=== PATIENT | female | born 1955 | race Caucasian/White ===

== ENCOUNTER → 2024-03-16 09:55 | Outpatient (REF) | payer MEDICARE, BC, SELFPAY | LOC: HWRAD 09:55 | PROVIDERS: ATTENDING PHYSICIAN Nurse Practitioner Family | DX: Z12.31 Encounter for screening mammogram for malignant neoplasm of breast (principal); M81.0 Age-related osteoporosis without current pathological fracture | CPT/HCPCS: 77063; 77067; 77080 ==

== ENCOUNTER → 2024-03-21 08:41 | Outpatient (REF) | payer MEDICARE, BC, SELFPAY | LOC: RAD 08:41 | PROVIDERS: ATTENDING PHYSICIAN Surgery Vascular Surgery | DX: I72.3 Aneurysm of iliac artery (principal) | CPT/HCPCS: 76770 ==

== ENCOUNTER → 2024-05-16 06:27 | Day surgery (SDC) | payer MEDICARE, BC, SELFPAY | LOC: GI 06:27 | PROVIDERS: ATTENDING PHYSICIAN Surgery | DX: Z12.11 Encounter for screening for malignant neoplasm of colon (principal); Z86.0100 Personal history of colon polyps, unspecified; K57.30 Diverticulosis of large intestine without perforation or abscess without bleeding; D12.5 Benign neoplasm of sigmoid colon | CPT/HCPCS: 45385; 88305 ==

== ENCOUNTER 2024-09-17 16:49 | Emergency (ER) | payer MEDICARE, BC, SELFPAY ==
[2024-09-17 17:12] VITALS: BMI 32.0
--- NOTE | 2024-09-17 17:33 | ED.GENMED ---
History of Present Illness
General
Chief Complaint: Fall
Source: patient
Exam Limitations: none
Time Seen by Provider: 09/17/24 17:16
Nursing documentation reviewed up to this point in time: agreed with
History of Present Illness
History of Present Illness:
69-year-old female presents with pain and swelling of her left calf, slip and fall down ice on a stair deck around 12 noon apparently was on the ground for 5 minutes though she got up took some Tylenol pain is increased through the day, EMS was
called received fentanyl notes feeling better she can ambulate, no head strike no hip pain, she has had bilateral knee replacements from Dr. Mejia she has had bilateral shoulder surgery Dr. Mi on aspirin no other blood thinners
Past History
Past History
ED Past Medical History: Hypothyroidism and Psychiatric (Anxiety, depression)
ED Past Surgical History: Orthopedic
Social History
Tobacco: Non-smoker
Alcohol: Daily
Drug: None
Personal:
Living: with family
Employment: Not employed
Phy Exam
Physical Exam
Physical Exam:
Physical Exam
General: 69-year-old female with no apparent head or neck trauma
Neck: No tongue bite no posterior neck pain
Heart: Regular
Lungs: no acute respiratory distress. clear bilaterally
Abdomen: Nontender
Neuro: alert and oriented. no focal neurological deficits
Skin: no rash
Psychiatric: well kept. interactive and cooperative
Extremities: Left lower extremity large hematoma anterior lateral to the tibia swelling the posterior calf
Course
Orders/Labs/Results
Orders:
Orders
09/17/24 17:15
CR Leg Tibia/fibula Left 2 Vw Urgent
Comment:
Reason For Exam: pain, swelling, bruising after fall
09/17/24 17:27
Complete Blood Count/With Diff Urgent
Comprehensive Metabolic Panel Urgent
Creatine Phosphokinase Urgent
Comment: ADD ON
Prothrombin Time Urgent
09/17/24 17:28
Add On- LAB Urgent
Tests Added?: cpk
09/17/24 17:34
Electrocardiogram (*1) Urgent
Reason for Study: QTc Monitoring
EKG- Treatment ONCE
09/17/24 19:06
Crutches-Treatment ONCE
09/17/24 19:16
0.9% Sodium Chloride 500 ml [Nss] 500 ml IV BOLUS
09/17/24 20:52
Oxycodone/Acetaminophen [Percocet 5/325] 1 tablet PO NOW STA
Abnormal Lab Results
09/17/24
17:27
RBC 3.42 L 10^6/uL
(4.20-5.40)
Hct 35.2 L %
(37.0-47.0)
MCV 102.9 H fL
(81.0-99.0)
MCH 35.4 H pg
(27.0-31.0)
Carbon Dioxide 20 L mmol/L
(22-30)
Glucose 151 H mg/dl
(70-99)
AST 40 H U/L
(14-36)
ALT 45 H U/L
(0-35)
Total Protein 6.0 L g/dl
(6.3-8.2)
09/17/24 17:27
09/17/24 17:27
Vital Signs
Initial and Last Documented VS:
Initial Vital Signs
Temp Pulse Resp BP Pulse Ox
98.2 F 50 18 90/69 98
09/17/24 17:38 09/17/24 17:38 09/17/24 17:38 09/17/24 17:38 09/17/24 17:38
Last Documented Vital Signs
Temp Pulse Resp BP Pulse Ox
98.2 F 72 20 91/71 95
09/17/24 17:38 09/17/24 19:48 09/17/24 19:48 09/17/24 19:48 09/17/24 19:23
*Radiology
Radiology exam reviewed: preliminary read by ED provider
*Pulse Oximetry
Patient hypoxic: no
*Critical Care Note
Total Time (30-74mins, 75-104mins- exclusive of procedures): Not Applicable
Update Note
Update Note:
Update x-ray noted patient feeling better labs are noted she has palpable pulses, minimal calf pain does have some swelling on the anterior of her de jesus with that hematoma
I do not see signs of compartment syndrome at this time--likewise there is no fracture she is on aspirin but no other blood thinners
Will see how she does with crutches
Update blood pressure is low bit low will give 500 saline, check an EKG labs are noted she looks well normal mental status, is not appear to be intoxicated, she did receive fentanyl from EMS we will hold on pushing her discharge obviously so she
responds
EKG noted blood pressure improved without any fluids, ambulating okay with crutches
ED Attending Note
-
Portions of this chart may have been created with voice recognition software.� Occasional wrong word or��sound alike� substitutions may have occurred due to the inherent limitations of voice recognition software.
Discharge Plan
Departure
Patient Disposition: Home (Routine Discharge)
Date of Disposition: 09/17/24
Time of Disposition: 19:12
Patient with high blood pressure during this ER visit?: No
Condition: Good
Discharge Problem:
Contusion of calf
Instructions: Preventing falls in adults, How to use crutches, Hematoma
Prescriptions:
New
oxycodone 5 mg tablet
5 mg PO Q8H PRN (Reason: Pain) Qty: 14 0RF
No Action
levothyroxine 50 MCG tablet
50 mcg PO DAILY@0700 Qty: 0 0RF
duloxetine 60 MG capsule,delayed release(DR/EC)
60 mg PO DAILY
multivitamin with folic acid [Tab-A-Kev] 1 TABLET tablet
1 tab PO DAILY
acetaminophen [Acetaminophen Extra Strength] 500 mg tablet
1,000 mg PO Q6H PRN (Reason: PAIN)
Rx Instructions:
DO NOT exceed >4000 mg daily.
docusate sodium 100 mg capsule
200 mg PO DAILY
gabapentin 300 mg capsule
300 mg PO TID
Eliquis 5 mg Tablet
10 mg PO BID Qty: 74 0RF
Rx Instructions:
take 10mg BID x 1 week, then 5mg BID thereafter (Starter delonte dosing)
Referrals:
Ehsan Mejia MD [Active] - Next open appointment
Joan Flores PA-C [Family Provider] -
Activity Restrictions/Additional Instructions:
Keep your leg elevated, walk frequently with crutches,
Follow-up with your orthopedist return to the ER if worsening pain or numbness
Interventions
Interventions:
*Risk Screen - Suicide Last Done: 09/17/24 17:12
*General Assessment Last Done: 09/17/24 17:12
*Neglect/Abuse Screening Last Done: 09/17/24 17:12
ED- Fall Risk Assessment Last Done: 09/17/24 17:12
*ED COVID-19 Vaccine History Last Done: 09/17/24 17:12
ED-Musculoskeletal Assessment Last Done: 09/17/24 17:12
ED- Neurological Assessment Last Done: 09/17/24 17:12
ED-Skin Assessment Last Done: 09/17/24 17:12
Discharge Date and Time
Print Language: BAHRAINI
[2024-09-17 17:36] LABS: % Basophils 0.8 % (0-2); % Eosinophils 1.4 % (0-6); % Immature Granulocytes 0.2 % (0-0.5); % Lymphocytes 29.3 % (20.5-51.1); % Monocytes 7.4 % (1.7-9.3); % Neutrophils 60.9 % (42.2-75.2); Absolute Eosinophils 0.1 10^3/uL (0-0.7); Absolute Lymphocytes 1.4 10^3/uL (1.2-3.4); Absolute Monocytes 0.4 10^3/uL (0.1-0.6); Hematocrit 35.2 % (37.0-47.0); Hemoglobin 12.1 g/dL (12.0-16.0); Mean Corp Hgb Conc. 34.4 g/dL (33.0-37.0); Mean Corpuscular Hgb 35.4 pg (27.0-31.0); Mean Corpuscular Volume 102.9 fL (81.0-99.0); Mean Platelet Volume 9.5 fL (7.4-10.4); Nucleated Red Blood Cells % 0 %; Platelet Count 198 10^3/uL (130-400); Red Blood Cell Count 3.42 10^6/uL (4.20-5.40); Red Cell Dist. Width 12.8 % (11.5-14.5); White Blood Cell Count 4.9 10^3/uL (4.8-10.8)
[2024-09-17 17:38] VITALS: BP 90/69
[2024-09-17 17:47] LABS: INR 1.04; PT 13.9 Sec (11.4-14.6)
[2024-09-17 17:49] LABS: ALT (SGPT) 45 U/L (0-35); AST (SGOT) 40 U/L (14-36); Albumin 3.6 g/dl (3.5-5.0); Alkaline Phosphatase 64 U/L (38-126); Blood Urea Nitrogen 9 mg/dl (7-17); Calcium 8.6 mg/dl (8.4-10.2); Carbon Dioxide 20 mmol/L (22-30); Chloride 106 mmol/L (98-107); Creatine Phosphokinase 114 U/L (30-135); Estimated Creatinine Clearance 91 ml/min; Glucose 151 mg/dl (70-99); Potassium 4.1 mmol/L (3.5-5.1); Sodium 135 mmol/L (135-145); Total Bilirubin 0.4 mg/dl (0.2-1.3); eGFR > 60.00
[2024-09-17 19:23] VITALS: BP 85/56
[2024-09-17 19:48] VITALS: BP 91/71
--- NOTE | 2024-09-17 19:48 | EDRN ---
This RN went in to assess pt and start IVF. Pt answered a call on [employer], asked pt if she would like this RN to return later. Pt ended call. Pt says she has some throbbing in her LLE. This RN switched BP cuff to R arm. Pt then answered
another call and was talking on FaceTime. This RN told pt will return later to speak with her.
[2024-09-17] MEDS: NSS 500 IV (20:48)
[2024-09-17] MEDS: PERCOCET 5/325 1 TABLET PO (20:55)
[2024-09-17 21:48] VITALS: BP 129/88
== END 2024-09-17 22:00 | disposition home or self-care (01) ==
LOC: EMR 16:49
PROVIDERS: EMERGENCY PHYSICIAN Emergency Medicine; FAMILY PHYSICIAN Physician Assistant
DX: S80.12XA Contusion of left lower leg, initial encounter (principal); W19.XXXA Unspecified fall, initial encounter; R22.42 Localized swelling, mass and lump, left lower limb; E03.9 Hypothyroidism, unspecified; F41.8 Other specified anxiety disorders
CPT/HCPCS: 99283; 96360; 73590; 80053; 82550; 85025; 85610; 93005

== ENCOUNTER → 2024-09-21 12:22 | Outpatient (REF) | payer MEDICARE, BC, SELFPAY | LOC: WOUND 12:22 | PROVIDERS: ATTENDING PHYSICIAN Surgery; FAMILY PHYSICIAN Nurse Practitioner Adult Health | DX: L97.229 Non-pressure chronic ulcer of left calf with unspecified severity (principal); S80.12XA Contusion of left lower leg, initial encounter; Z96.651 Presence of right artificial knee joint; Z91.81 History of falling; Z96.652 Presence of left artificial knee joint; Z86.718 Personal history of other venous thrombosis and embolism; W10.9XXA Fall (on) (from) unspecified stairs and steps, initial encounter | CPT/HCPCS: 99203 ==

== ENCOUNTER → 2024-09-28 10:12 | Outpatient (REF) | payer MEDICARE, BC, SELFPAY | LOC: WOUND 10:12 | PROVIDERS: ATTENDING PHYSICIAN Surgery; FAMILY PHYSICIAN Nurse Practitioner Adult Health | DX: L97.229 Non-pressure chronic ulcer of left calf with unspecified severity (principal); S80.12XA Contusion of left lower leg, initial encounter; Z96.651 Presence of right artificial knee joint; Z91.81 History of falling; Z96.652 Presence of left artificial knee joint; Z86.718 Personal history of other venous thrombosis and embolism; W10.9XXA Fall (on) (from) unspecified stairs and steps, initial encounter | CPT/HCPCS: 99213 ==

== ENCOUNTER → 2024-10-04 09:15 | Outpatient (REF) | payer MEDICARE, BC, SELFPAY | LOC: RAD 09:15 | PROVIDERS: ATTENDING PHYSICIAN Surgery Vascular Surgery | DX: I72.3 Aneurysm of iliac artery (principal) | CPT/HCPCS: 93978 ==

== ENCOUNTER → 2024-10-05 10:08 | Outpatient (REF) | payer MEDICARE, BC, SELFPAY | LOC: WOUND 10:08 | PROVIDERS: ATTENDING PHYSICIAN Surgery; FAMILY PHYSICIAN Nurse Practitioner Adult Health | DX: L97.229 Non-pressure chronic ulcer of left calf with unspecified severity (principal); S80.12XA Contusion of left lower leg, initial encounter; Z96.651 Presence of right artificial knee joint; Z91.81 History of falling; Z96.652 Presence of left artificial knee joint; Z86.718 Personal history of other venous thrombosis and embolism; W19.XXXA Unspecified fall, initial encounter | CPT/HCPCS: 99212 ==

== ENCOUNTER 2024-10-09 16:31 | Inpatient (IN) | payer MEDICARE, BC, SELFPAY ==
[2024-10-09] VITALS (7 sets, daily range): BP systolic 99–146; BP diastolic 64–84; BMI 28.9
--- NOTE | 2024-10-09 11:06 | ED.SKININJ ---
HPI-Injury
General
Chief Complaint: Skin Problem
Source: patient
Exam Limitations: none
Time Seen by Provider: 10/09/24 10:54
History of Present Illness-Injury
Initial Injury comments:
69-year-old female presents in referral from vascular surgery office for evaluation of worsening wound to the left leg. She was here several weeks ago after a fall and sustained a contusion to the left leg. She was then referred to wound care.
She has been following with wound care getting dressing changes and has been on Keflex for 2 weeks. 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
Past History
Past History
ED Past Medical History: Hypothyroidism and Psychiatric (Anxiety, depression)
ED Past Surgical History: Orthopedic
Social History
Tobacco: Non-smoker
Alcohol: Daily
Drug: None
Personal:
Living: with family
Employment: Not employed
Phy Exam
Physical Exam
Physical Exam:
General: Well-appearing female no acute respiratory distress
HEENT: Normocephalic atraumatic
Heart: Regular rate and rhythm lungs: Clear no wheeze
Lungs: Clear no wheeze skin: Large wound left lateral de jesus that is foul in odor with devitalized necrotic tissue at the base of the wound.
Vascular: Palpable pulse to the dorsal aspect of the left foot
Course
Orders/Labs/Results
Orders:
Orders
10/09/24 11:05
CR Leg Tibia/fibula Left 2 Vw Urgent
Comment:
Reason For Exam: infection
10/09/24 11:22
Complete Blood Count/With Diff Urgent
10/09/24 12:00
Basic Metabolic Panel Urgent
10/09/24 12:37
Ketorolac [Toradol] 15 mg IV NOW STA
Ondansetron Injectable [Zofran] 4 mg IV NOW STA
10/09/24 13:24
Vancomycin [Vancocin] 2,000 mg 0.9% Sodium Chloride 500 ml [Nss] 500 ml IV NOW
Abnormal Lab Results
10/09/24 10/09/24
11:22 12:00
RBC 3.75 L 10^6/uL
(4.20-5.40)
MCV 102.9 H fL
(81.0-99.0)
MCH 35.5 H pg
(27.0-31.0)
Absolute Lymphs (auto) 0.8 L 10^3/uL
(1.2-3.4)
Lymphocytes % 17.1 L %
(20.5-51.1)
Creatinine 0.5 L mg/dL
(0.6-1.0)
10/09/24 11:22
10/09/24 12:00
Vital Signs
Initial and Last Documented VS:
Initial Vital Signs
Temp Pulse Resp BP Pulse Ox
98.4 F 75 16 140/84 98
10/09/24 10:37 10/09/24 10:37 10/09/24 10:37 10/09/24 10:37 10/09/24 10:37
Last Documented Vital Signs
Temp Pulse Resp BP Pulse Ox
98.4 F 75 16 140/84 98
10/09/24 10:37 10/09/24 10:37 10/09/24 10:37 10/09/24 10:37 10/09/24 10:37
MDM/Problems Addressed
Differential Diagnosis Includes:
Worsening wound left lateral de jesus. There is a foul odor concern for underlying infection. She has been on oral antibiotics without relief. Basic labs ordered x-ray ordered anticipate need for admission for surgical evaluation potential
debridement and wound treatment.
*Critical Care Note
Total Time (30-74mins, 75-104mins- exclusive of procedures): Not Applicable
Update Note
Update Note:
Labs reviewed without significant finding. X-ray negative. Vancomycin ordered. Will admit to hospitalist for infected wound left leg failing outpatient treatment
ED Attending Note
-
Portions of this chart may have been created with voice recognition software.� Occasional wrong word or��sound alike� substitutions may have occurred due to the inherent limitations of voice recognition software.
Discharge Plan
Departure
Patient Disposition: Admit
Date of Disposition: 10/09/24
Time of Disposition: 13:36
Presentation/result/management discussed w/ accepting MD/DO: Hospitalist
Discharge Problem:
Infected wound
Prescriptions:
No Action
levothyroxine 50 MCG tablet
50 mcg PO DAILY@0700 Qty: 0 0RF
multivitamin with folic acid [Tab-A-Kev] 1 TABLET tablet
1 tab PO DAILY
acetaminophen [Acetaminophen Extra Strength] 500 mg tablet
1,000 mg PO Q6H PRN (Reason: PAIN)
Rx Instructions:
DO NOT exceed >4000 mg daily.
docusate sodium 100 mg capsule
200 mg PO DAILY PRN (Reason: Constipation)
cephalexin 500 mg capsule
500 mg PO QID
Rx Instructions:
10/09/24: started 32/20 x 10d
aspirin 81 mg Tablet,Chewable
324 mg PO DAILY
sertraline 50 mg tablet
50 mg PO DAILY
Referrals:
Edith Salmeron CRNP [Family Provider] -
Interventions
Interventions:
*Risk Screen - Suicide Last Done: 10/09/24 11:26
*Neglect/Abuse Screening Last Done: 10/09/24 11:26
*ED COVID-19 Vaccine History Last Done: 10/09/24 11:25
Discharge Date and Time
Print Language: IRAQI
[2024-10-09 11:38] LABS: % Basophils 0.8 % (0-2); % Eosinophils 1.8 % (0-6); % Immature Granulocytes 0.4 % (0-0.5); % Lymphocytes 17.1 % (20.5-51.1); % Neutrophils 70.9 % (42.2-75.2); Absolute Eosinophils 0.1 10^3/uL (0-0.7); Absolute Lymphocytes 0.8 10^3/uL (1.2-3.4); Absolute Monocytes 0.4 10^3/uL (0.1-0.6); Absolute Neutrophils 3.5 10^3/uL (1.4-6.5); Hematocrit 38.6 % (37.0-47.0); Hemoglobin 13.3 g/dL (12.0-16.0); Mean Corp Hgb Conc. 34.5 g/dL (33.0-37.0); Mean Corpuscular Hgb 35.5 pg (27.0-31.0); Mean Corpuscular Volume 102.9 fL (81.0-99.0); Mean Platelet Volume 9.4 fL (7.4-10.4); Nucleated Red Blood Cells % 0 %; Platelet Count 328 10^3/uL (130-400); Red Blood Cell Count 3.75 10^6/uL (4.20-5.40); Red Cell Dist. Width 13.2 % (11.5-14.5); White Blood Cell Count 4.9 10^3/uL (4.8-10.8)
[2024-10-09 12:40] LABS: Blood Urea Nitrogen 7 mg/dl (7-17); Calcium 9.4 mg/dl (8.4-10.2); Carbon Dioxide 26 mmol/L (22-30); Chloride 105 mmol/L (98-107); Glucose 95 mg/dl (70-99); Sodium 138 mmol/L (135-145); eGFR > 60.00
[2024-10-09] MEDS: TORADOL 15 MG IV (13:03)
[2024-10-09] MEDS: ZOFRAN 4 MG IV (13:03)
--- NOTE | 2024-10-09 13:27 | HPS.HSE ---
Family Physician
-
Family Physician: JENNIFER Mark
Chief Complaint
-
Left Lower Ext Wound
History of Present Illness
69F Hypothyroidism Anxiety Depression b/l shoulder and knee replacements hx DVT/PE completed anticoagulation tx here for Left Lower Extremity wound that started with fall on ice sustained on [place]bow[place] Wednesday[place] 17. Wound started as pain and
swelling of calf from contusion. Wound since progressed with ulceration. Patient received outpt wound care dressing changes and abx- but continued to worsen despite treatment. In routine follow up femoral artery aneurysm vascular office, there
was significant concern regarding severity/odor of wound, prompting referral to ED. VSS. Labs Unremarkable. Lt tibia/fibula X-ray results pending.
Medical History
Past Medical History
Past Medical History: Reports Other (as above)
Past Surgical History: Reports Other (as above)
Social History
Tobacco: Non-smoker
Alcohol: Occasional
Drug: None
Personal:
Living: With Family
Employment: Employed
Family History
Family History: Not pertinent (reviewed)
Allergies / Home Medications
Allergies reflects when Allergies were last updated in [facility].
Home Medications with original date entered in [facility]
Allergy/Medication List:
Allergies
Allergy/AdvReac Type Severity Reaction Status Date / Time
pollen extracts Allergy Sneezing, Verified 10/09/24 10:43
itchy eyes
- seasonal
Home Medications
levothyroxine 50 mcg tablet 50 mcg PO DAILY@0700 ##0 12/04/15
multivitamin with folic acid 400 mcg tablet (Tab-A-Kev) 1 tab PO DAILY Supplement 12/22/21
acetaminophen 500 mg tablet (Acetaminophen Extra Strength) 1,000 mg PO Q6H PRN PAIN 07/31/22
docusate sodium 100 mg capsule 200 mg PO DAILY PRN Constipation 07/31/22
aspirin 81 mg chewable tablet 324 mg PO DAILY 10/09/24
cephalexin 500 mg capsule 500 mg PO QID 10/09/24
sertraline 50 mg tablet 50 mg PO DAILY 10/09/24
Review of Systems
-
A 12 point ROS was completed and negative except as noted: Yes
Constitutional: Reports Other (as below)
Physical Exam
Vital Signs
Vital Signs
Temp Pulse Resp BP Pulse Ox
98.4 F 75 16 140/84 98
10/09/24 10:37 10/09/24 10:37 10/09/24 10:37 10/09/24 10:37 10/09/24 10:37
Physical Exam
General: Other (as below)
Laboratory Results
-
10/09/24 11:22
10/09/24 12:00
Laboratory Results
Total Bilirubin Cancelled 10/09/24 12:00
AST Cancelled 10/09/24 12:00
ALT Cancelled 10/09/24 12:00
Alkaline Phosphatase Cancelled 10/09/24 12:00
Impression/Plan
-
ROS
General: Denies fever chills night sweats unexpected weight loss
Neuro: Denies seizure shaking loss of consciousness dizziness vertigo
Psych: denies depression hallucinations confusion manic episodes
Endocrine: Denies polyuria polydipsia polyphagia heat/cold intolerance
HEENT: Denies blindness visual disturbances epistaxis
Pulmonary: denies coughing hemoptysis sneezing sob dyspnea on exertion
Cardiovascular: denies chest pain palpitations
Hematology: denies signs symptoms of anemia easy bruising/bleeding
Gastrointestinal: denies nausea vomiting diarrhea constipation hematemesis hematochezia melena
Genito-Urinary: denies retention incontinence dysuria
Musculoskeletal: denies joint pain weakness
Dermatology: Left lower extremity wound
Physical Exam
General: No pallor, cyanosis, or jaundice.
HEENT: Throat clear. PERRLA Normocephalic atraumatic
NECK: Supple. No JVD Carotid Bruits
RESPIRATORY: Lungs clear to auscultation. No crackles wheezes stridor
CVS: S1, S2 normal. RRR. No murmur, rub or gallop.
ABDOMEN: Soft, non-tender. No distension. BS+/normal.
EXTREMITIES: No peripheral cyanosis or edema. +1 dorsal pedis and posterior tibial pulses b/l. Warm ext's. Large Left Lower Ext wound as pictured below, tender
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
IMPRESSION:
69F Hypothyroidism Anxiety Depression b/l shoulder and knee replacements hx DVT/PE completed anticoagulation tx here for Left Lower Extremity wound that started with fall on ice sustained on [place] Wednesday[place] 17. Wound started as pain and
swelling of calf from contusion. Wound since progressed with ulceration. Patient received outpt wound care dressing changes and abx- but continued to worsen despite treatment. In routine follow up femoral artery aneurysm vascular office, there
was significant concern regarding severity/odor of wound, prompting referral to ED. VSS. Labs Unremarkable. Lt tibia/fibula X-ray results pending.
PLAN:
#Lt Lower Ext Wound Infection progressively worsening/failed outpt treatment
#Suspect underlying vessel dz leading to poor wound healing
Medsurg
cont empiric IV vancomycin
MRSA screen
follow-up wound cx
ID and Vascular Eval
Wound Care
prn Tylenol
prn Tramadol mod severe pain
Regular Diet for now, NPO after midnight for possible surgical intervention
Follow up A1c in AM
#Hx PE/DVT completed anticoagulation treatment
#Hx b/l shoulder and knee replacements
per pt, On asa 324 mg daily DVT ppx prescribed in recent orthopedic follow up after her fall as above.
Holding ASA in favor of Lovenox while inpt.
#Hypothyroidism
cont home Synthroid
#Anxiety/Depression
cont home Sertraline
DVT ppx Lovenox
GI ppx Protonix
Full Code
I spent a total of 75 minutes with the patient or on the floor. More than 50% of this time involved counseling and coordination of care.
[2024-10-09] MEDS: VANCOCIN 540 MG IV (14:06)
[2024-10-09] MEDS: TYLENOL 650 MG PO (15:57)
[2024-10-09] MEDS: PROTONIX 40 MG PO (18:01)
--- NOTE | 2024-10-09 18:53 | PHA.VAN.IN ---
Assessment
- Assessment
Renal Function: Appears similar to baseline (09/17/24 BASELINE SCR: 0.6)
Concomitant Antimicrobials: NONE
- Previous Dosing Experience
Previous Regimen: NONE
AUC Dosing Plan
- Dosing Variables
Dosing Weight (kg): 74
Dosing CrCl (ml/min): 86
Vd coefficient (L/kg): 0.7
- Empiric Dosing
Initial / Loading Dose: 2GM
Maintenance Regimen: 1GM IV Q12H
Estimated AUC (mcg*h/mL): 529
Estimated Peak (mcg*h/mL): 32.3
Estimated Trough (mcg/ml): 14
Estimated Half Life (H): 9.1
Pharmacokinetics Vancomycin I
- -
Patient Age: 69
Patient Sex: Female
Vancomycin Day #: 1
Indication: Skin And Soft Tissue (NON-HEALING LEG WOUND)
Requesting Provider: KHARI
Height / Weight:
Height 5 ft 3 in
Actual Weight 74.021 kg
Pertinent Past Medical History: FAILED OUTPATIENT TX
- Vital Signs / Lab Results
Temp Pulse Resp BP Pulse Ox
97.5 F 68 17 146/79 95
10/09/24 17:21 10/09/24 17:21 10/09/24 17:21 10/09/24 17:21 10/09/24 17:21
Lab Results - Hematology
10/09/24
11:22
WBC 4.9
Lab Results - Chemistry
10/09/24 10/09/24
11:22 12:00
BUN Cancelled 7
Creatinine Cancelled 0.5 L
Estimated Creat Clear Cancelled
Albumin Cancelled Cancelled
--- NOTE | 2024-10-09 19:09 | PTCARENOTE ---
pt. came up from the ED around 1630. Pt. walked from stretcher to bed. Oriented to room, VS completed. Will continue to monitor and continue ongoing care.
[2024-10-09] MEDS: ULTRAM 50 MG PO (19:32)
[2024-10-10] VITALS (12 sets, daily range): BP systolic 2–122; BP diastolic 51–78
[2024-10-10] MEDS: SYNTHROID 50 MCG PO (05:04)
[2024-10-10] MEDS: VANCOCIN 200 IV ×2 (05:04→20:14)
[2024-10-10] MEDS: ULTRAM 50 MG PO ×3 (05:05→20:36)
[2024-10-10 06:33] LABS: Hematocrit 37.5 % (37.0-47.0); Hemoglobin 12.4 g/dL (12.0-16.0); Mean Corp Hgb Conc. 33.1 g/dL (33.0-37.0); Mean Corpuscular Volume 105.9 fL (81.0-99.0); Mean Platelet Volume 9.3 fL (7.4-10.4); Platelet Count 303 10^3/uL (130-400); Red Blood Cell Count 3.54 10^6/uL (4.20-5.40); Red Cell Dist. Width 13.2 % (11.5-14.5); White Blood Cell Count 4.6 10^3/uL (4.8-10.8)
--- NOTE | 2024-10-10 06:55 | W.PN.HOSP.TC ---
Today's Communication/Plan
-
cont abx as per ID
wound care as per Vascular
follow up cultures
Assessment / Plan
Assessment / Plan
Physical Exam
General: No pallor, cyanosis, or jaundice.
HEENT: Throat clear. PERRLA Normocephalic atraumatic
NECK: Supple. No JVD Carotid Bruits
RESPIRATORY: Lungs clear to auscultation. No crackles wheezes stridor
CVS: S1, S2 normal. RRR. No murmur, rub or gallop.
ABDOMEN: Soft, non-tender. No distension. BS+/normal.
EXTREMITIES: No peripheral cyanosis or edema. LLE wound vac in place
IMPRESSION:
69F Hypothyroidism Anxiety Depression b/l shoulder and knee replacements hx DVT/PE completed anticoagulation tx here for Left Lower Extremity wound that started with fall on ice sustained on [place] 17. Wound started as pain and
swelling of calf from contusion. Wound since progressed with ulceration. Patient received outpt wound care dressing changes and abx- but continued to worsen despite treatment. In routine follow up femoral artery aneurysm vascular office, there
was significant concern regarding severity/odor of wound, prompting referral to ED. VSS. Labs Unremarkable. Lt tibia/fibula X-ray results pending.
PLAN:
#Lt Lower Ext Wound Infection progressively worsening/failed outpt treatment
Medsurg
MRSA screen
follow-up wound cx
ID eval appreciated cont empiric Vanc, zosyn added (GNR noted in prelim wound cx)
Vascular eval appreciated no significant underlying vascular dz contributing to wound, surgical wound debridement and vac placed 10/10
Wound Care
prn Tylenol
prn Tramadol mod severe pain
#Hx PE/DVT completed anticoagulation treatment
#Hx b/l shoulder and knee replacements
per pt, On asa 324 mg daily DVT ppx prescribed in recent orthopedic follow up after her fall as above.
Holding ASA in favor of Lovenox while inpt.
#Hypothyroidism
cont home Synthroid
#Anxiety/Depression
cont home Sertraline
DVT ppx Lovenox
GI ppx Protonix
Full Code
discussed with patient and family ( and son).
I spent a total of 40 minutes with the patient or on the floor. More than 50% of this time involved counseling and coordination of care.
Anticipated Discharge: 24 - 48 hours
Subjective/Interval History
-
Date of Service: October 10, 2024
No acute distress. Reports feeling well since surgical wound debridement and wound vac placement. Family, and son present during evaluation.
Objective Data
-
Labs:
Laboratory Results
10/10/24
05:24
WBC 4.6 L
Hgb 12.4
Hct 37.5
Plt Count 303
Sodium Pending
Potassium Pending
Chloride Pending
Carbon Dioxide Pending
BUN Pending
Creatinine Pending
Glucose Pending
Calcium Pending
Vital Signs:
Vital Signs
Temp Pulse Resp BP Pulse Ox
98.2 F 62 17 99/64 96
10/09/24 23:40 10/09/24 23:40 10/09/24 23:40 10/09/24 23:40 10/09/24 23:40
[2024-10-10 06:59] LABS: Blood Urea Nitrogen 9 mg/dl (7-17); Calcium 9.1 mg/dl (8.4-10.2); Carbon Dioxide 24 mmol/L (22-30); Chloride 107 mmol/L (98-107); Estimated Creatinine Clearance 86 ml/min; Glucose 87 mg/dl (70-99); Potassium 4.4 mmol/L (3.5-5.1); Sodium 138 mmol/L (135-145); eGFR > 60.00
[2024-10-10] MEDS: THERAGRAN 1 TABLET PO (09:08)
[2024-10-10] MEDS: ZOLOFT 50 MG PO (09:08)
[2024-10-10] MEDS: PROTONIX 40 MG PO (09:08)
[2024-10-10 09:17] LABS: Glycohemoglobin (HgbA1c) 4.9 % (4.0-5.6)
--- NOTE | 2024-10-10 11:08 | WOUNDNOTE ---
L LATERAL LOWER LEG
--- NOTE | 2024-10-10 11:10 | WOUNDNOTE ---
WON RN note: Patient admitted with Infected wound of L leg.
See H&P for complete history. Lives with who does wound care, [facility] weekly.
PMH: Hypothyroidism Anxiety Depression b/l shoulder and knee replacements hx DVT/PE completed anticoagulation tx here for Left Lower Extremity wound that started with fall on ice sustained on [place] Wednesday[place] 17.
Wound Location and type/assessment: Patient admitted with: L leg full thickness trauma wound, reviewed Dr. Cervantes's last note. Large ulcer with moderate drainage and + odor. + palpable pedal pulse, heels intact. Edema mainly above ulcer, using
Tubigrip at home. Patient sent to ER from vascular office for worsening wound. KARLO reviewed, R-0.97, L 1.12 and normal waveforms. X ray of L leg negative for fracture. Wound culture pending. Patient and at bedside asking many questions
regarding plan for wound, if having debridement done today, etc. Support and reassurance given, nurse Dillon confirmed patient NPO for possible OR later today. Student nurse assisted.
Appetite: NPO otherwise good. Encouraged protein in diet.
Pressure redistribution devices in place: On Accumax, is ad anthony. Pillow placed under L calf.
Plan: Adaptic, ABD pad Kerlix and Tubigrip size F knee high applied. Will follow along peripherally with vascular and update wound care as needed. Will confirm orders with hospitalist and updated nurse.
Updated care plan and will follow as needed.
Note to case management of equipment requested for discharge: TBD
Recommend follow up at wound care center upon discharge.
--- NOTE | 2024-10-10 11:15 | PHA.VAN.FU ---
Vancomycin Assessment / Plan
- Assessment
Renal Function: Stable
- Dosing Plan
Continue: Vanc 1000mg Q12H
- Monitoring Plan
No level(s) ordered at this time: consider levels in next few days
- Follow Up
Pharmacy will continue to follow.
Vancomycin Follow UP
- -
Patient Age: 69
Patient Sex: Female
Vancomycin Day #: 2
Indication: Skin And Soft Tissue
Requesting Provider: Dr. Andres
Pertinent Antimicrobial Allergies:
no pertinent antibiotic allergies
Height / Weight:
Height 5 ft 3 in
Actual Weight 74.021 kg
Pertinent Past Medical History: BMI ~29
- Vital Signs / Lab Results
Temp Pulse Resp BP Pulse Ox
98.5 F 63 14 103/63 93
10/10/24 07:36 10/10/24 07:36 10/10/24 07:36 10/10/24 07:36 10/10/24 07:36
Lab Results - Hematology
10/09/24 10/10/24
11:22 05:24
WBC 4.9 4.6 L
Lab Results - Chemistry
10/09/24 10/09/24 10/10/24
11:22 12:00 05:24
BUN Cancelled 7 9
Creatinine Cancelled 0.5 L 0.5 L
Estimated Creat Clear Cancelled 86
Albumin Cancelled Cancelled
Microbiology Results
10/09/24 17:15 Nasal Screen MRSA (PCR) - Final
Nose MRSA not detected - performed by PCR methodology.
--- NOTE | 2024-10-10 12:41 | W.PN.UPDATE ---
Update Note
Progress Note Update
Patient known to me
Seen in the office yesterday for surveillance follow-up of iliac artery aneurysm
At that time she reported a new issue of left calf wound [place] [facility] [place] [facility]
The calf wound has been evolving since that time with no meaningful improvement
Recent sloughing of the eschar
Had seen wound care and orthopedics as an outpatient
On physical exam her left lateral calf wound is large and open
Surrounding cellulitis
Calf is soft
No purulence identified
Palpable pedal pulses
I reviewed her lower extremity arterial studies which revealed normal KARLO and TBI on the left. Arterial duplex examination is unremarkable from the common femoral artery through the popliteal artery
My recommendation is for operative debridement today
Possible VAC placement
She may ultimately need a skin graft
Explained this plan to the patient and her who are in agreement
Ismael Mei III, MD
[facility]
[phone] (eikw)
--- NOTE | 2024-10-10 12:48 | W.SUR.PREOP ---
Pre-Operative Surgical Note
-
I have examined this patient prior to the performance of the scheduled procedure.
The patient's condition is unchanged from the time of the current History and
Physical and the patient is able to undergo the scheduled procedure.
[2024-10-10] MEDS: ZOSYN 100 IV ×3 (12:56→23:19)
--- NOTE | 2024-10-10 13:09 | PTCARENOTE ---
received pt from [facility] @ 1230 via bed after report obtained from [place], pt AAO x3, c/o persistent left lower leg burning pain and rates 5/10, pt placed on monitor to reveal NSR, vital signs as follows: temp 98.6, HR 66, RR 16, O2 sat 94% on room
air, denies SOB or cough, lung sounds clear, abd soft with +BS, new #20P inserted in RAC, zosyn dose given as ordered- see eagle, pt seen by Dr Quintero for anesthesia and Dr Mei- consent signed and questions answered
--- NOTE | 2024-10-10 13:20 | PTCARENOTE ---
Handoff report given to Keara GAMBLE and Sravanthi GAMBLE, pt transferred via bed to procedural room
--- NOTE | 2024-10-10 15:12 | CM ---
Patient out of room to OR. CM will try to reach patient to complete IA.
--- NOTE | 2024-10-10 16:04 | OR.RPT ---
Operative Report
Operative Report
Date of Operation: 10/10/2024
Pre Op Diagnosis: Nonhealing left lateral calf wound
Post Op Diagnosis: Nonhealing left lateral calf wound
Procedure: Sharp excisional debridement of left lateral calf wound including skin and subcutaneous tissue (wound dimensions 20 cm x 10 cm = 200 cm�)
Surgeon: Ismael Mei III, MD
Anesthesia: General
Complications: None
Estimated Blood Loss: 30 cc
History and Indications for Procedure: 69-year-old female with nonhealing left lateral calf wound sustained after a fall approximately 1 month ago
Procedure in Detail: Sabine Licea was correctly identified and placed supine on the operating table. After adequate induction of anesthesia the left leg was positioned, prepped and draped in the usual sterile fashion. Preoperative antibiotics were
administered. A timeout procedure was performed with the nursing and anesthesia staff confirming the patient's identity as well as the nature and laterality of the procedure.
Using a scalpel and forceps, sharp excisional debridement was performed on the left lateral calf wound wound. Skin and subcutaneous tissue was sharply debrided from the wound. Old hematoma was evacuated from the subcutaneous space in the proximal
lateral calf. Pulsatile bleeding was identified from the subcutaneous tissue and skin edges throughout. No purulence was identified. Debridement of the ischemic tissue continued to healthy bleeding tissue. The wound dimensions debrided were 20 cm
x 10 cm.
The wound was then pulse irrigated with 3 L of saline. Hemostasis was achieved with electrocautery. A VAC dressing was applied to the wound.
The patient tolerated the procedure well and was taken to the PACU in stable condition
Attestation: I was present and responsible for the entire procedure
Signed:
Ismael Mei III, MD
[facility]
[phone] (vcfr)
--- NOTE | 2024-10-10 16:45 | CON.ID ---
Consultation
-
Date/Time Consultation Requested: 10/09/24 17:20
Date/Time Consultation Performed: 10/10/24 12:30
Requesting Provider: Dr Andres
Performing Provider: Dr Florian
Reason for Consultation: Left lower ext wound failed outpt wnd care and abx
Chief Complaint / Past History
Chief Complaint
progression of L lower extremity wound
History of Present Illness
Ms Licea is a 69 year old female presenting from vascular surgery clinic to the ER for progression of a left lower extremity wound which has been followed with wound care center. Also note prior L knee replacement. She reports that wound first
began as a bruise on the L [place] she fell on ice 09/17/24 about 4 weeks ago. She was on anticoagulation at that time for DVT/PE. She has been following with wound care. She was last seen in wound care on 09/28 with an eschar and ballotable
hematoma. She was using warm compresses and was started on keflex that day 09/28 at 500 mg PO QID x10 days with 3 refills, however over the last several days the previous bruise opened up and began draining foul smelling fluid. There is surrounding
erythema. No fevers or chills.
Since arrival here she has been afebrile, bp overall stable, wbc initially 4.9 now 4.6, hgb 12.4, plt 303, no L shift, cr 0.5, a1c 4.9, LFTs not done this admission, tib fib xray: no evidence of osteomyelitis, arterial US: ABIs WNL on the L, wound
culture 3/3 gram stain many GNR, mrsa pcr negative, I started patient on zosyn prior to patient being taken to the OR, patient taken to the OR for excisional debridement - wound dimensions 20 cm x10 cm, old hematoma was evacuated, pulsatile bleeding
from SQ tissue and skin edged - no purulence, no visible bone reported from the OR, patient is currently on vancomycin and zosyn, ID is consulted for assistance with management.
Past History
Additional Past Medical History:
DVT/PE
Anxiety Depression
Additional Past Surgical History:
b/l shoulder and knee replacements
Allergy History:
pollen extracts Allergy (Verified 10/09/24 10:43)
Sneezing, itchy eyes - seasonal
Social History
Tobacco: Non-Smoker
Alcohol: Occasional
Drug: None
Family History
Family History: Not Pertinent
Review of Systems
Review of Systems
General: Negative Fever or Chills
All systems: All other systems were reviewed and were negative
Vital Signs
Temp Pulse Resp BP Pulse Ox
97.8 F 60 18 108/55 98
10/10/24 15:15 10/10/24 15:15 10/10/24 15:15 10/10/24 15:15 10/10/24 15:15
Physical Exam
Physical Exam
Constitutional: No Acute Distress
Cardiovascular: Regular Rate and S1/S2; Negative Murmur or Rub
Pulmonary: Clear and Symmetric; Negative Wheezes, Rales or Rhonchi
Gastrointestinal: Soft, Non Tender, Non Distended and Normal Bowel Sounds
Skin: Warm and Dry; Negative Rash or Jaundice
Wound: Other (large left calf wound examined pre-operatively, swollen proximal L calf, dried blood in the wound bed, surrounding cellulitis, obvious odor)
Neurological: Awake
Lab / Diagnostic Study Results
10/10/24 05:24
10/10/24 05:24
Abs Immat Gran (auto) 0.0 10^3/uL (0-0.05) 10/09/24 11:22
Absolute Neuts (auto) 3.5 10^3/uL (1.4-6.5) 10/09/24 11:22
Absolute Lymphs (auto) 0.8 10^3/uL (1.2-3.4) L 10/09/24 11:22
Absolute Monos (auto) 0.4 10^3/uL (0.1-0.6) 10/09/24 11:22
Absolute Basos (auto) 0.0 10^3/uL (0-0.2) 10/09/24 11:22
Immature Gran % 0.4 % (0-0.5) 10/09/24 11:22
Neutrophils % 70.9 % (42.2-75.2) 10/09/24 11:22
Lymphocytes % 17.1 % (20.5-51.1) L 10/09/24 11:22
Monocytes % 9.0 % (1.7-9.3) 10/09/24 11:22
Eosinophils % 1.8 % (0-6) 10/09/24 11:22
Basophils % 0.8 % (0-2) 10/09/24 11:22
Microbiology Results
Micro:
10/09/24 16:54 Wound Culture - Preliminary
Ulcer Gram Stain - Preliminary
10/09/24 17:15 Nasal Screen MRSA (PCR) - Final
Nose MRSA not detected - performed by PCR methodology.
Assessment / Plan
Chronic Wound Infection
H/o L knee replacement
- wound culture in progress - gram stain many GNR
- no need for blood cultures as patient is not septic and unlikely to be positive
- note negative MRSA screen
- appreciate vascular surgery input
- started zosyn
- continue vancomycin pending wound culture
- follow clinically
[2024-10-10] MEDS: LOVENOX 40 MG SC (18:01)
[2024-10-11 03:00] VITALS: BP 98/60
[2024-10-11] MEDS: VANCOCIN 200 IV ×2 (05:45→17:58)
[2024-10-11] MEDS: ZOSYN 100 IV ×3 (05:46→17:16)
[2024-10-11] MEDS: SYNTHROID 50 MCG PO (05:46)
[2024-10-11] MEDS: ULTRAM 50 MG PO ×3 (05:49→17:08)
[2024-10-11 05:50] LABS: Hematocrit 37.8 % (37.0-47.0); Hemoglobin 12.6 g/dL (12.0-16.0); Mean Corp Hgb Conc. 33.3 g/dL (33.0-37.0); Mean Corpuscular Hgb 35.2 pg (27.0-31.0); Mean Corpuscular Volume 105.6 fL (81.0-99.0); Mean Platelet Volume 9.2 fL (7.4-10.4); Platelet Count 295 10^3/uL (130-400); Red Blood Cell Count 3.58 10^6/uL (4.20-5.40); Red Cell Dist. Width 12.6 % (11.5-14.5); White Blood Cell Count 5.7 10^3/uL (4.8-10.8)
[2024-10-11 06:18] LABS: Blood Urea Nitrogen 10 mg/dl (7-17); Calcium 9.2 mg/dl (8.4-10.2); Carbon Dioxide 22 mmol/L (22-30); Chloride 106 mmol/L (98-107); Estimated Creatinine Clearance 86 ml/min; Glucose 101 mg/dl (70-99); Magnesium 2.1 mg/dl (1.6-2.3); Phosphorus 4.7 mg/dl (2.5-4.5); Potassium 4.6 mmol/L (3.5-5.1); Sodium 136 mmol/L (135-145); eGFR > 60.00
--- NOTE | 2024-10-11 06:47 | W.PN.HOSP.TC ---
Today's Communication/Plan
-
cont wound care as per vascular
abx as per ID
pain control
Assessment / Plan
Assessment / Plan
Physical Exam
General: No pallor, cyanosis, or jaundice.
HEENT: Throat clear. PERRLA Normocephalic atraumatic
NECK: Supple. No JVD Carotid Bruits
RESPIRATORY: Lungs clear to auscultation. No crackles wheezes stridor
CVS: S1, S2 normal. RRR. No murmur, rub or gallop.
ABDOMEN: Soft, non-tender. No distension. BS+/normal.
EXTREMITIES: No peripheral cyanosis or edema. LLE wound vac in place
IMPRESSION:
69F Hypothyroidism Anxiety Depression b/l shoulder and knee replacements hx DVT/PE completed anticoagulation tx here for Left Lower Extremity wound that started with fall on ice sustained on Superbowl WednesdaySep 17. Wound started as pain and
swelling of calf from contusion. Wound since progressed with ulceration. Patient received outpt wound care dressing changes and abx- but continued to worsen despite treatment. In routine follow up femoral artery aneurysm vascular office, there
was significant concern regarding severity/odor of wound, prompting referral to ED. VSS. Labs Unremarkable. Lt tibia/fibula X-ray results pending.
PLAN:
#Lt Lower Ext Wound Infection progressively worsening/failed outpt treatment
Medsurg
MRSA screen
follow-up wound cx
ID eval appreciated cont empiric Vanc, zosyn added (GNR noted in prelim wound cx)
Vascular eval appreciated no significant underlying vascular dz contributing to wound, surgical wound debridement and vac placed 10/10
Wound Care
prn Tylenol
prn Tramadol mod severe pain, morphine added for severe breakthrough pain
#Hx PE/DVT completed anticoagulation treatment
#Hx b/l shoulder and knee replacements
per pt, On asa 324 mg daily DVT ppx prescribed in recent orthopedic follow up after her fall as above.
Holding ASA in favor of Lovenox while inpt.
#Hypothyroidism
cont home Synthroid
#Anxiety/Depression
cont home Sertraline
DVT ppx Lovenox
GI ppx Protonix
Full Code
I spent a total of 40 minutes with the patient or on the floor. More than 50% of this time involved counseling and coordination of care.
Anticipated Discharge: 24 - 48 hours
Subjective/Interval History
-
Date of Service: October 11, 2024
no acute distress. pain relatively well controlled with current pain regimen.
Objective Data
-
Labs:
Laboratory Results
10/11/24
05:35
WBC 5.7
Hgb 12.6
Hct 37.8
Plt Count 295
Sodium 136
Potassium 4.6
Chloride 106
Carbon Dioxide 22
BUN 10
Creatinine 0.5 L
Glucose 101 H
Calcium 9.2
Vital Signs:
Vital Signs
Temp Pulse Resp BP Pulse Ox
98.1 F 58 14 98/60 97
10/11/24 03:00 10/11/24 03:00 10/11/24 03:00 10/11/24 03:00 10/11/24 03:00
I&O
10/09/24 10/10/24 10/11/24
06:59 06:59 06:59
Intake Total 480 / 480
Output Total 2 / 2
Balance 478 / 478
[2024-10-11 07:43] VITALS: BP 109/59
--- NOTE | 2024-10-11 08:22 | W.PN.VS ---
Today's Communication / Plan
-
See below.
Assessment/Plan
-
Assessment: 69-year-old female POD #1 left lower extremity wound debridement with wound VAC placement
Plan:
Consultation to case management for initiation of wound VAC therapy at home
Consultation to wound care nursing
Continue wound VAC
Given placement was on Wednesday will do next wound VAC change likely Wednesday to keep with MWF schedule in the outpatient setting
Subjective Data
-
Date of Service: October 11, 2024
Patient seen and examined at bedside, offers no complaints. Reports adequate postoperative pain management.
Objective Data
-
Vital Signs
Temp Pulse Resp BP Pulse Ox
97.7 F 58 16 109/59 96
10/11/24 07:43 10/11/24 07:43 10/11/24 07:43 10/11/24 07:43 10/11/24 07:43
Intake and Output
10/10/24 10/11/24 10/12/24
06:59 06:59 06:59
Intake Total 480 / 480 240 / 240
Output Total 2 / 2
Balance 478 / 478 240 / 240
Intake:
Oral fluids 480 / 480 240 / 240
Output:
Drain Output (Total) 2 / 2
Left Leg Wound Vac A 2 / 2
Other:
Number of approximated MODERATE 1 3 1
amounts of urine
Lab Results
10/11/24 05:35
10/11/24 05:35
Calcium 9.2 mg/dl (8.4-10.2) 10/11/24 05:35
Phosphorus 4.7 mg/dl (2.5-4.5) H 10/11/24 05:35
Magnesium 2.1 mg/dl (1.6-2.3) 10/11/24 05:35
Total Bilirubin Cancelled 10/09/24 12:00
AST Cancelled 10/09/24 12:00
ALT Cancelled 10/09/24 12:00
Alkaline Phosphatase Cancelled 10/09/24 12:00
Total Protein Cancelled 10/09/24 12:00
Albumin Cancelled 10/09/24 12:00
Physical Exam
-
No apparent distress, resting in bed comfortably
No tachycardia
No dyspnea on room air
Left lower extremity wound VAC CDI, holding suction, left foot warm
[2024-10-11] MEDS: PROTONIX 40 MG PO (08:49)
[2024-10-11] MEDS: ZOLOFT 50 MG PO (08:49)
[2024-10-11] MEDS: THERAGRAN 1 TABLET PO (08:50)
--- NOTE | 2024-10-11 09:42 | PHA.VAN.FU ---
Vancomycin Assessment / Plan
- Assessment
Renal Function: Stable
WBC's are: WNL
In the past 24 hrs, patient has been: Afebrile
Concomitant Antimicrobials: piperacillin/tazobactam
- Dosing Plan
Continue: Vanc 1000mg Q12H
- Monitoring Plan
No level(s) ordered at this time: consider levels in next few days
- Follow Up
Pharmacy will continue to follow.
Vancomycin Follow UP
- -
Patient Age: 69
Patient Sex: Female
Vancomycin Day #: 3
Indication: Skin And Soft Tissue
Requesting Provider: Dr. Andres / Dr. Florian
Pertinent Antimicrobial Allergies:
no pertinent antibiotic allergies
Height / Weight:
Height 5 ft 3 in
Actual Weight 74.021 kg
Pertinent Past Medical History: BMI ~29
- Vital Signs / Lab Results
Temp Pulse Resp BP Pulse Ox
97.7 F 58 16 109/59 96
10/11/24 07:43 10/11/24 07:43 10/11/24 07:43 10/11/24 07:43 10/11/24 07:43
Lab Results - Hematology
10/09/24 10/10/24 10/11/24
11:22 05:24 05:35
WBC 4.9 4.6 L 5.7
Lab Results - Chemistry
10/09/24 10/09/24 10/10/24
11:22 12:00 05:24
BUN Cancelled 7 9
Creatinine Cancelled 0.5 L 0.5 L
Estimated Creat Clear Cancelled 86
Albumin Cancelled Cancelled
10/11/24
05:35
BUN 10
Creatinine 0.5 L
Estimated Creat Clear 86
Albumin
Microbiology Results
10/09/24 16:54 Wound Culture - Preliminary
Ulcer Gram Stain - Preliminary
10/09/24 17:15 Nasal Screen MRSA (PCR) - Final
Nose MRSA not detected - performed by PCR methodology.
--- NOTE | 2024-10-11 12:53 | CM ---
Patient seen at bedside. Patient states that she lives in a 2 story home with her . Patient stated that she has a first floor set up. Patient requesting [facility] for wound care and Wound care is setting up wound vac. Patient uses [facility] in
[place] and she has a walker, and cane at home. Patient PCP is from [facility]. Patient stated her will transport when discharged. CM will continue to follow for discharge planning needs.
Plan; home with [facility] and wound vac; per wound care.
--- NOTE | 2024-10-11 13:51 | VNURNOTE ---
Home Health Liaison met with patient at bedside to discuss [facility] nurse/therapy, visits, schedule and homebound status. Patient is agreeable and understands that visits at home will be 2-3 x per week to assess and teach medical management. [facility] to
monitor and change wound vac at home. Patient is aware that [facility] will contact them for start of care in 1-2 days after discharge from .
[facility] referral completed in [facility].
--- NOTE | 2024-10-11 14:28 | WOUNDNOTE ---
WOC RN note: Confirmed with Chandrika Carcamo, Vascular [employer] can request weekly [employer] weekly vac dressing kit for home. Faxed home vac paperwork to Tara Duque from [facility] for home vac approval with weekly [employer] vac dressing. Chandrika
approved PT evaluation for home safety with ambulation with vac.
[2024-10-11 15:04] VITALS: BP 117/54
--- NOTE | 2024-10-11 15:41 | W.PN.ID1 ---
Date of Service
Date of Service: October 11, 2024
Today's Communication
- continue vancomycin and zosyn pending final ID and sensitivities
Assessment / Plan
Chronic Wound Infection
H/o L knee replacement
- wound culture in progress - Proteus, Enterococcus, Diptheroids
- appreciate vascular surgery input
- continue vancomycin and zosyn pending final ID and sensitivities
- follow clinically
Chief Complaint
-: Cellulitis (wound infection)
Subjective / Review of Systems
afebrile
bp stable
tolerating current therapies
Vital Signs / Physical Exam
Vital Signs
Vital Signs
Temp Pulse Resp BP Pulse Ox
98.7 F 60 16 117/54 91
10/11/24 15:04 10/11/24 15:04 10/11/24 15:04 10/11/24 15:04 10/11/24 15:04
Physical Exam
Constitutional: No Acute Distress
Cardiovascular: Regular Rate and S1/S2; Negative Murmur or Rub
Pulmonary: Clear and Symmetric; Negative Wheezes or Rales
Gastrointestinal: Soft, Non Tender, Non Distended and Normal Bowel Sounds
Skin: Warm and Dry; Negative Rash or Jaundice
Wound: Other (wound vac in place)
Objective Data
Lab Data
Lab Results
10/11/24 05:35
10/11/24 05:35
Estimated Creat Clear 86 ml/min 10/11/24 05:35
Total Bilirubin Cancelled 10/09/24 12:00
AST Cancelled 10/09/24 12:00
ALT Cancelled 10/09/24 12:00
Alkaline Phosphatase Cancelled 10/09/24 12:00
Most recent labs reviewed.
Micro Results:
10/09/24 16:54 Wound Culture - Preliminary
Ulcer Proteus species
Enterococcus species
Gram Stain - Preliminary
10/09/24 17:15 Nasal Screen MRSA (PCR) - Final
Nose MRSA not detected - performed by PCR methodology.
[2024-10-11] MEDS: LOVENOX 40 MG SC (17:19)
[2024-10-11] MEDS: MORPHINE SULFATE 2 MG IV (22:06)
[2024-10-11 23:15] VITALS: BP 89/48
[2024-10-12] MEDS: ZOSYN 100 IV ×5 (00:20→23:59)
[2024-10-12 00:35] VITALS: BP 104/63
[2024-10-12] MEDS: VANCOCIN 200 IV ×2 (05:28→18:15)
[2024-10-12] MEDS: SYNTHROID 50 MCG PO (05:30)
[2024-10-12 06:03] LABS: Hematocrit 37.7 % (37.0-47.0); Hemoglobin 12.5 g/dL (12.0-16.0); Mean Corp Hgb Conc. 33.2 g/dL (33.0-37.0); Mean Corpuscular Hgb 34.8 pg (27.0-31.0); Mean Platelet Volume 9.4 fL (7.4-10.4); Platelet Count 264 10^3/uL (130-400); Red Blood Cell Count 3.59 10^6/uL (4.20-5.40); Red Cell Dist. Width 12.9 % (11.5-14.5); White Blood Cell Count 4.4 10^3/uL (4.8-10.8)
[2024-10-12] MEDS: ULTRAM 50 MG PO ×3 (06:07→22:59)
[2024-10-12 06:55] LABS: Blood Urea Nitrogen 8 mg/dl (7-17); Calcium 9.4 mg/dl (8.4-10.2); Carbon Dioxide 26 mmol/L (22-30); Chloride 106 mmol/L (98-107); Estimated Creatinine Clearance 74 ml/min; Glucose 82 mg/dl (70-99); Magnesium 2.1 mg/dl (1.6-2.3); Phosphorus 4.8 mg/dl (2.5-4.5); Sodium 140 mmol/L (135-145); eGFR > 60.00
--- NOTE | 2024-10-12 07:16 | W.PN.HOSP.TC ---
Today's Communication/Plan
-
Cont abx as per ID
wound care
pain control
Assessment / Plan
Assessment / Plan
Physical Exam
General: No pallor, cyanosis, or jaundice.
HEENT: Throat clear. PERRLA Normocephalic atraumatic
NECK: Supple. No JVD Carotid Bruits
RESPIRATORY: Lungs clear to auscultation. No crackles wheezes stridor
CVS: S1, S2 normal. RRR. No murmur, rub or gallop.
ABDOMEN: Soft, non-tender. No distension. BS+/normal.
EXTREMITIES: No peripheral cyanosis or edema. LLE wound vac in place
IMPRESSION:
69F Hypothyroidism Anxiety Depression b/l shoulder and knee replacements hx DVT/PE completed anticoagulation tx here for Left Lower Extremity wound that started with fall on ice sustained on [place] WednesdaySep 17. Wound started as pain and
swelling of calf from contusion. Wound since progressed with ulceration. Patient received outpt wound care dressing changes and abx- but continued to worsen despite treatment. In routine follow up femoral artery aneurysm vascular office, there
was significant concern regarding severity/odor of wound, prompting referral to ED. VSS. Labs Unremarkable. Lt tibia/fibula X-ray results pending.
PLAN:
#Lt Lower Ext Wound Infection progressively worsening/failed outpt treatment
Medsurg
MRSA screen
follow-up wound cx
ID eval appreciated cont empiric Vanc, zosyn added (GNR noted in prelim wound cx)
Vascular eval appreciated no significant underlying vascular dz contributing to wound, surgical wound debridement and vac placed 10/10
Wound Care
prn Tylenol
prn Tramadol mod severe pain, morphine added for severe breakthrough pain
#Hx PE/DVT completed anticoagulation treatment
#Hx b/l shoulder and knee replacements
per pt, On asa 324 mg daily DVT ppx prescribed in recent orthopedic follow up after her fall as above.
Holding ASA in favor of Lovenox while inpt.
#Hypothyroidism
cont home Synthroid
#Anxiety/Depression
cont home Sertraline
DVT ppx Lovenox
GI ppx Protonix
Full Code
I spent a total of 40 minutes with the patient or on the floor. More than 50% of this time involved counseling and coordination of care.
Anticipated Discharge: 24 - 48 hours
Subjective/Interval History
-
Date of Service: October 12, 2024
No acute distress. Pain relatively well controlled at this time with current pain regimen.
Objective Data
-
Labs:
Laboratory Results
10/12/24
05:34
WBC 4.4 L
Hgb 12.5
Hct 37.7
Plt Count 264
Sodium 140
Potassium 4.0
Chloride 106
Carbon Dioxide 26
BUN 8
Creatinine 0.7
Glucose 82
Calcium 9.4
Vital Signs:
Vital Signs
Temp Pulse Resp BP Pulse Ox
97.8 F 57 16 104/63 94
10/11/24 23:15 10/11/24 23:15 10/11/24 23:15 10/12/24 00:35 10/11/24 23:15
I&O
10/11/24 10/12/24 10/13/24
06:59 06:59 06:59
Intake Total 480 / 480 720 / 720
Output Total 1100 / 1100
Balance 478 / 478 -380 / -380
--- NOTE | 2024-10-12 07:25 | PTCARENOTE ---
Patient's blood pressure was 89/48. DESIRAE Lopez notified. This RN rechecked blood pressure and it was 104/63. DESIRAE Lopez notified. Will continue to monitor.
[2024-10-12] MEDS: THERAGRAN 1 TABLET PO (07:37)
[2024-10-12] MEDS: PROTONIX 40 MG PO (07:37)
[2024-10-12] MEDS: ZOLOFT 50 MG PO (07:37)
[2024-10-12 07:41] VITALS: BP 117/75
[2024-10-12] MEDS: SENOKOT-S 1 TABLET PO (10:39)
--- NOTE | 2024-10-12 11:18 | CM ---
Patient seen at bedside with present. Patient stated that she is very eager to go home. Patient for [facility] to follow and pending wound Vac delivery. CM will check in with wound care. CM will continue to follow for discharge planning needs.
Plan; home with [facility] and wound vac
[2024-10-12 11:40] VITALS: BP 121/71; PULSE 57; O2SAT 95
--- NOTE | 2024-10-12 11:43 | W.PN.ID1 ---
Date of Service
Date of Service: October 12, 2024
Today's Communication
- continue vancomycin and zosyn pending final ID and sensitivities
Assessment / Plan
Chronic Wound Infection
H/o L knee replacement
- wound culture in progress - Proteus, Enterococcus, Diptheroids
- appreciate vascular surgery input
- continue vancomycin and zosyn pending final ID and sensitivities
- follow clinically
Chief Complaint
-: Cellulitis (wound infection)
Subjective / Review of Systems
afebrile
bp stable
no events overnight
Vital Signs / Physical Exam
Vital Signs
Vital Signs
Temp Pulse Resp BP Pulse Ox
98 F 56 16 117/75 97
10/12/24 07:41 10/12/24 07:41 10/12/24 07:41 10/12/24 07:41 10/12/24 07:45
Physical Exam
Constitutional: No Acute Distress
Cardiovascular: Regular Rate and S1/S2; Negative Murmur or Rub
Pulmonary: Clear and Symmetric; Negative Wheezes or Rales
Gastrointestinal: Soft, Non Tender, Non Distended and Normal Bowel Sounds
Skin: Warm and Dry; Negative Rash or Jaundice
Wound: Other (wound vac)
Objective Data
Lab Data
Lab Results
10/12/24 05:34
10/12/24 05:34
Estimated Creat Clear 74 ml/min 10/12/24 05:34
Total Bilirubin Cancelled 10/09/24 12:00
AST Cancelled 10/09/24 12:00
ALT Cancelled 10/09/24 12:00
Alkaline Phosphatase Cancelled 10/09/24 12:00
Most recent labs reviewed.
Micro Results:
10/09/24 16:54 Wound Culture - Preliminary
Ulcer Proteus species
Enterococcus species
Gram Stain - Preliminary
10/09/24 17:15 Nasal Screen MRSA (PCR) - Final
Nose MRSA not detected - performed by PCR methodology.
Care Review
Plan reviewed with: Physician (Dr Andres - disposition)
[2024-10-12 12:17] VITALS: BP 121/71; PULSE 57; O2SAT 95
--- NOTE | 2024-10-12 13:20 | WOUNDNOTE ---
WOC RN note: Patient's home ready vac is approved as per [employer].
--- NOTE | 2024-10-12 14:16 | PHA.VAN.FU ---
Vancomycin Assessment / Plan
- Assessment
Renal Function: Stable
WBC's are: WNL
In the past 24 hrs, patient has been: Afebrile
Concomitant Antimicrobials: Pip/Tazo 4.5gm Q6H
- Dosing Plan
Continue: 1gm Q12H
- Monitoring Plan
No level(s) ordered at this time: Possible discharge in 24 hrs. If not, will consider levels
- Follow Up
Pharmacy will continue to follow.
Vancomycin Follow UP
- -
Patient Age: 69
Patient Sex: Female
Vancomycin Day #: 4
Indication: Skin And Soft Tissue
Requesting Provider: Dr. Andres / Dr. Florian
Pertinent Antimicrobial Allergies:
no pertinent antibiotic allergies
Height / Weight:
Height 5 ft 3 in
Actual Weight 74.021 kg
Pertinent Past Medical History: BMI ~29
- Vital Signs / Lab Results
Temp Pulse Resp BP Pulse Ox
98 F 56 16 117/75 97
10/12/24 07:41 10/12/24 07:41 10/12/24 07:41 10/12/24 07:41 10/12/24 07:45
Lab Results - Hematology
10/10/24 10/11/24 10/12/24
05:24 05:35 05:34
WBC 4.6 L 5.7 4.4 L
Lab Results - Chemistry
10/10/24 10/11/24 10/12/24
05:24 05:35 05:34
BUN 9 10 8
Creatinine 0.5 L 0.5 L 0.7
Estimated Creat Clear 86 86 74
Microbiology Results
10/09/24 16:54 Wound Culture - Final
Ulcer Proteus mirabilis
Enterococcus faecalis
Gram Stain - Final
10/09/24 17:15 Nasal Screen MRSA (PCR) - Final
Nose MRSA not detected - performed by PCR methodology.
[2024-10-12 14:59] VITALS: BP 119/88
[2024-10-12] MEDS: LOVENOX 40 MG SC (17:26)
[2024-10-12 23:28] VITALS: BP 102/58
[2024-10-13] MEDS: SYNTHROID 50 MCG PO (05:15)
[2024-10-13] MEDS: VANCOCIN 200 IV (05:16)
[2024-10-13] MEDS: ZOSYN 100 IV (05:16)
[2024-10-13 05:30] LABS: Hematocrit 37.6 % (37.0-47.0); Hemoglobin 12.6 g/dL (12.0-16.0); Mean Corp Hgb Conc. 33.5 g/dL (33.0-37.0); Mean Corpuscular Hgb 34.7 pg (27.0-31.0); Mean Corpuscular Volume 103.6 fL (81.0-99.0); Mean Platelet Volume 9.3 fL (7.4-10.4); Platelet Count 235 10^3/uL (130-400); Red Blood Cell Count 3.63 10^6/uL (4.20-5.40); Red Cell Dist. Width 12.6 % (11.5-14.5); White Blood Cell Count 4.1 10^3/uL (4.8-10.8)
[2024-10-13 05:52] LABS: Blood Urea Nitrogen 5 mg/dl (7-17); Calcium 9.4 mg/dl (8.4-10.2); Carbon Dioxide 27 mmol/L (22-30); Chloride 102 mmol/L (98-107); Estimated Creatinine Clearance 86 ml/min; Glucose 86 mg/dl (70-99); Phosphorus 4.9 mg/dl (2.5-4.5); Potassium 3.8 mmol/L (3.5-5.1); Sodium 137 mmol/L (135-145); eGFR > 60.00
[2024-10-13] MEDS: ULTRAM 50 MG PO (06:04)
[2024-10-13] MEDS: ZOLOFT 50 MG PO (07:17)
[2024-10-13] MEDS: THERAGRAN 1 TABLET PO (07:17)
[2024-10-13] MEDS: PROTONIX 40 MG PO (07:17)
--- NOTE | 2024-10-13 07:24 | W.PN.HOSP.TC ---
Today's Communication/Plan
-
discharge
Assessment / Plan
Assessment / Plan
Physical Exam
General: No pallor, cyanosis, or jaundice.
HEENT: Throat clear. PERRLA Normocephalic atraumatic
NECK: Supple. No JVD Carotid Bruits
RESPIRATORY: Lungs clear to auscultation. No crackles wheezes stridor
CVS: S1, S2 normal. RRR. No murmur, rub or gallop.
ABDOMEN: Soft, non-tender. No distension. BS+/normal.
EXTREMITIES: No peripheral cyanosis or edema. LLE wound vac in place
Neuro: AOx3 conversant coherent
Psych: calm
IMPRESSION:
69F Hypothyroidism Anxiety Depression b/l shoulder and knee replacements hx DVT/PE completed anticoagulation tx here for Left Lower Extremity wound that started with fall on ice sustained on [place] Wednesday[place] 17. Wound started as pain and
swelling of calf from contusion. Wound since progressed with ulceration. Patient received outpt wound care dressing changes and abx- but continued to worsen despite treatment. In routine follow up femoral artery aneurysm vascular office, there
was significant concern regarding severity/odor of wound, prompting referral to ED. VSS. Labs Unremarkable. Lt tibia/fibula X-ray results pending.
PLAN:
#Lt Lower Ext Wound Infection progressively worsening/failed outpt treatment
Medsurg
MRSA screen
wound cx appreciated Proteus mirabilis Enterococcus faecalis
ID eval appreciated empiric Vanc, zosyn added (GNR noted in prelim wound cx), IV abx switched to Augmentin 10 more days 10/13/24-10/22/24 following review of sensitivities
Vascular eval appreciated no significant underlying vascular dz contributing to wound, surgical wound debridement and vac placed 10/10 changed 10/13 cleared for discharge from surgical standpoint
Wound Care
prn Tylenol
prn Tramadol mod severe pain, morphine added for severe breakthrough pain
#Hx PE/DVT completed anticoagulation treatment
#Hx b/l shoulder and knee replacements
per pt, On asa 324 mg daily DVT ppx prescribed in recent orthopedic follow up after her fall as above.
Holding ASA in favor of Lovenox while inpt.
#Hypothyroidism
cont home Synthroid
#Anxiety/Depression
cont home Sertraline
DVT ppx Lovenox
GI ppx Protonix
Full Code
Medically stable for discharge home with home services and outpatient follow up recommendations.
Total Time Preparing Discharge ___40____ minutes including examination of the patient, summary of the hospital stay, instructions for continuing care to all relevant caregivers; and preparation of discharge records, prescriptions, and referral
forms if necessary.
Anticipated Discharge: Today
Subjective/Interval History
-
Date of Service: October 13, 2024
Seen and examined at bedside in no acute distress. Sitting up comfortably in bed. Reports feeling well. Pain well controlled at this time. LLE wound vac recently changed. Denies new acute issues. Eager to go home.
Objective Data
-
Labs:
Laboratory Results
10/13/24
05:05
WBC 4.1 L
Hgb 12.6
Hct 37.6
Plt Count 235
Sodium 137
Potassium 3.8
Chloride 102
Carbon Dioxide 27
BUN 5 L
Creatinine 0.6
Glucose 86
Calcium 9.4
Vital Signs:
Vital Signs
Temp Pulse Resp BP Pulse Ox
97.9 F 54 16 102/58 98
10/12/24 23:28 10/12/24 23:28 10/12/24 23:28 10/12/24 23:28 10/12/24 23:28
I&O
10/12/24 10/13/24 10/14/24
06:59 06:59 06:59
Intake Total 720 / 720 840 / 840 480 / 480
Output Total 1100 / 1100
Balance -380 / -380 840 / 840 480 / 480
[2024-10-13 08:00] VITALS: BP 108/64
--- NOTE | 2024-10-13 08:52 | W.PN.VS ---
Today's Communication / Plan
-
See below
Assessment/Plan
-
Assessment: 69-year-old female POD #3 left lower extremity wound debridement with wound VAC placement
Plan:
Wound VAC changed at bedside by myself and wound care nurse, healthy granulation tissue present, no active bleeding
Wound VAC changed, CDI peel and place dressing applied only needs to be changed once a week
Continue wound VAC
Home VNA following
A vascular surgical perspective cleared for discharge home
Subjective Data
-
Date of Service: October 13, 2024
Patient seen and examined at bedside, offers no complaints. Reports eagerness for discharge home. Reports tolerable postoperative pain management. Tolerating p.o. diet.
Objective Data
-
Vital Signs
Temp Pulse Resp BP Pulse Ox
96.3 F L 54 19 108/64 94
10/13/24 08:00 10/13/24 08:00 10/13/24 08:00 10/13/24 08:00 10/13/24 08:00
Intake and Output
10/12/24 10/13/24 10/14/24
06:59 06:59 06:59
Intake Total 720 / 720 840 / 840 480 / 480
Output Total 1100 / 1100
Balance -380 / -380 840 / 840 480 / 480
Intake:
Oral fluids 720 / 720 840 / 840 480 / 480
Output:
Urine, Voided 1100 / 1100
Other:
Number of approximated MODERATE 2 4 4
amounts of urine
Lab Results
10/13/24 05:05
10/13/24 05:05
Calcium 9.4 mg/dl (8.4-10.2) 10/13/24 05:05
Phosphorus 4.9 mg/dl (2.5-4.5) H 10/13/24 05:05
Magnesium 2.0 mg/dl (1.6-2.3) 10/13/24 05:05
Total Bilirubin Cancelled 10/09/24 12:00
AST Cancelled 10/09/24 12:00
ALT Cancelled 10/09/24 12:00
Alkaline Phosphatase Cancelled 10/09/24 12:00
Total Protein Cancelled 10/09/24 12:00
Albumin Cancelled 10/09/24 12:00
Physical Exam
-
No apparent distress, resting in bed comfortably
No tachycardia
No dyspnea on room air
Left lower extremity wound VAC CDI, holding suction, left foot warm
--- NOTE | 2024-10-13 09:19 | W.PN.UPDATE ---
Update Note
Progress Note Update
reviewed sensitivities
recommend: augmentin 875/125 mg po bid x 10 more days
--- NOTE | 2024-10-13 09:25 | WOUNDNOTE ---
[facility] RN note: Patient seen with Chandrika Carcamo, vascular CHIEF OF HOSPITAL MEDICINE. Changed patient's LLE wound vac using a large weekly Peel and Place vac dressing. Connected home vac (serial # [id number]). Wound pink with scattered dark areas. Moderate ss drainage. No
surrounding erythema. Feet warm. Instructed patient how to turn on/off home vac, how to clamp and disconnect and reconnect and un-clamp vac tubing, how to plug in vac pump, how to change vac canister. Instructed patient vac trouble shooting i.e. air
leak or canister full and if carlota bleeding occurs to disconnect vac tubing, turn off vac unit and call 911. Patient given patient vac teaching pamphlet and instructed patient to call or [facility] if vac looses it's seal and cannot be corrected.
Patient instructed vac dressing needs to be removed if the vac looses it's seal for longer than 2 hrs. Patient verbalized understanding. Patient's heels blanchable red. Sacral skin intact. Instructed patient heel elevation in bed and pressure injury
prevention measures. Heels off bed with air chair cushion. Updated CM Janet Wynne and MAVIS Long. RN Student Kenia with patient during visit. Instructed patient about returning home vac pump to [facility] when physician stops therapy. Patient to
follow up with Dr. Mei. Patient aware to take home vac supplies. RONY Alegre in during visit and RONY is aware that the weekly Peel and Place vac dressing was applied. Will fax patient signed home vac deliver form to Tara Duque from
[employer].
--- NOTE | 2024-10-13 10:05 | CM ---
Addendum entered by Brenna Wynne 10/13/24 10:59:
IMM completed, signed form on chart. Patient eager for discharge at bedside.
Original Note:
Patient seen at bedside. IMM provided for patient to review. Patient home wound vac in place per wound care, [facility] to follow and CM awaiting updated antibiotic needs to confirm no IV antibiotics needed. Patient very eager to go home. CM will
continue to follow for discharge planning needs.
Plan; home with [facility] and wound care.
[2024-10-13] MEDS: AUGMENTIN 875 MG/125 MG 1 TABLET PO (10:24)
--- NOTE | 2024-10-13 10:41 | W.DCSUMMARY ---
Discharge Summary
Discharge Data
Date of Admission: 10/09/24
Date of Discharge: 10/13/24
-
Pending Results: No
Discharge Plan
-
Patient Disposition: Home with Home Care
Discharge Diagnosis/Procedures: Left Lower Extremity Wound infection status post surgical wound debridement and wound vac placement
Condition: Fair
Diet: Regular
Driving Restrictions: Not until seen by your Dr
Bathing Restrictions: OK to Shower
Other Services: VN, PT and OT
Activity Restrictions/Additional Instructions:
Wound Care Instructions
L leg- wound vac therapy-clean with saline, apply Large Peel and Place weekly black foam (ref #[id number]) and change weekly and prn unable to maintain a seal or apply Black Granufoam vac dressing and change q 48-72hrs and prn if unable to obtain a
seal. Low Intensity, Continuous at 125 mmHg. Upon discharge or transfer to another facility, remove VAC foam and apply NS moistened gauze dressing unless home VAC unit available.
Elevate heels off bed with pillow and/or air chair cushion.
Follow with with Dr. Mei.
Follow up with primary care provider in 1 week of discharge, vascular surgeon in 2 weeks of discharge, and plastic surgeon in 2-3 weeks of discharge.
Augmentin has been prescribed for wound infection to continue through 10/22/24 then stop antibiotic use. This antibiotic replaces the previous antibiotic that you were taking before cephalexin (Keflex).
A probiotic has been prescribed to promote gut health while on antibiotic as above. Probiotic is available over the counter. Ok to discontinue probiotic use when off antibiotics.
Tramadol has been prescribed as needed for pain.
Please take medications as prescribed/recommended and follow up with primary care provider and/or other healthcare provider involved in your care for refills and/or further adjustments to your medication regimen as necessary.
Referrals:
Edith Salmeron CRNP [Family Provider] - in one week
Ana Luisa Cartagena PA-C [Specified Professional Personl] - in two weeks (Our office will call you with your follow-up appointment)
Star Hernandez MD [Active] - in two to three weeks (Please call Dr. Hernandez's office to establish an appointment within the next 2 to 3 weeks)
Prescriptions:
New
amoxicillin-pot clavulanate 875-125 mg Tablet
1 tab PO Q12 Qty: 19 0RF
Rx Instructions:
10/22/24 last day for antibiotics
Saccharomyces boulardii 250 mg Capsule
250 mg PO BID Qty: 19 0RF
tramadol 50 mg Tablet
50 mg PO TIDPRN PRN (Reason: moderate severe pain) Qty: 15 0RF
Continued
levothyroxine 50 MCG tablet
50 mcg PO DAILY@0700 Qty: 0 0RF
multivitamin with folic acid [Tab-A-Kev] 1 TABLET tablet
1 tab PO DAILY
acetaminophen [Acetaminophen Extra Strength] 500 mg tablet
1,000 mg PO Q6H PRN (Reason: PAIN)
Rx Instructions:
DO NOT exceed >4000 mg daily.
docusate sodium 100 mg capsule
200 mg PO DAILY PRN (Reason: Constipation)
aspirin 81 mg Tablet,Chewable
324 mg PO DAILY
sertraline 50 mg tablet
50 mg PO DAILY
Discontinued
cephalexin 500 mg capsule
500 mg PO QID
Rx Instructions:
10/09/24: started x 10d
Discharge Orders:
Discharge Patient (As Directed); Ordered 10/13/24
Ordered By: Jennifer Andres
Discharge Date and Time
Print Language: FRENCH
[2024-10-13] MEDS: FLORASTOR 250 MG PO (11:35)
[2024-10-13 12:40] VITALS: BP 110/78
--- NOTE | 2024-10-13 17:40 | WOUNDNOTE ---
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 Faxed patient signed proof of home vac deliver to Tara Duque from [email or web address].
== END 2024-10-13 12:46 | disposition home health service (06) | DRG 571 ==
LOC: 3 WEST ACU 16:31
PROVIDERS: Physician Assistant; Surgery Vascular Surgery; ADMITTING PHYSICIAN Internal Medicine; EMERGENCY PHYSICIAN Student in an Organized Health Care Education/Training Program; FAMILY PHYSICIAN Nurse Practitioner Family; OTHER PHYSICIAN Student in an Organized Health Care Education/Training Program
PROC: 0JBP0ZZ Excision of Left Lower Leg Subcutaneous Tissue and Fascia, Open Approach (ICD-10-PCS; 2024-10-10)
DX: S81.802A Unspecified open wound, left lower leg, initial encounter (principal); L03.116 Cellulitis of left lower limb; F32.A Depression, unspecified; F41.9 Anxiety disorder, unspecified; E03.9 Hypothyroidism, unspecified; I72.4 Aneurysm of artery of lower extremity; B96.4 Proteus (mirabilis) (morganii) as the cause of diseases classified elsewhere; B95.2 Enterococcus as the cause of diseases classified elsewhere; W00.0XXA Fall on same level due to ice and snow, initial encounter; Z79.890 Hormone replacement therapy; Z79.82 Long term (current) use of aspirin; Z86.718 Personal history of other venous thrombosis and embolism; Z86.711 Personal history of pulmonary embolism; Z96.653 Presence of artificial knee joint, bilateral; Z96.612 Presence of left artificial shoulder joint; Z96.611 Presence of right artificial shoulder joint
CPT/HCPCS: 11042; 11045; 73590; 80048; 83036; 83735; 84100; 85025; 85027; 87070; 87077; 87186; 87205; 87641; 93922; 93925; 96374; 96375; 97162; 97166; 99285

== ENCOUNTER → 2024-10-31 07:34 | Outpatient (REF) | payer MEDICARE, BC, SELFPAY ==
[2024-10-31 08:00] LABS: % Basophils 0.8 % (0-2); % Eosinophils 3.4 % (0-6); % Immature Granulocytes 0.5 % (0-0.5); % Lymphocytes 17.2 % (20.5-51.1); % Monocytes 7.9 % (1.7-9.3); % Neutrophils 70.2 % (42.2-75.2); Absolute Basophils 0.1 10^3/uL (0-0.2); Absolute Eosinophils 0.2 10^3/uL (0-0.7); Absolute Lymphocytes 1.1 10^3/uL (1.2-3.4); Absolute Monocytes 0.5 10^3/uL (0.1-0.6); Absolute Neutrophils 4.3 10^3/uL (1.4-6.5); Hematocrit 44.6 % (37.0-47.0); Hemoglobin 14.7 g/dL (12.0-16.0); Mean Corpuscular Hgb 33.9 pg (27.0-31.0); Mean Platelet Volume 9.8 fL (7.4-10.4); Nucleated Red Blood Cells % 0 %; Platelet Count 255 10^3/uL (130-400); Red Blood Cell Count 4.33 10^6/uL (4.20-5.40); Red Cell Dist. Width 13.5 % (11.5-14.5); White Blood Cell Count 6.1 10^3/uL (4.8-10.8)
[2024-10-31 08:34] LABS: ALT (SGPT) 39 U/L (0-35); AST (SGOT) 35 U/L (14-36); Albumin 4.4 g/dl (3.5-5.0); Alkaline Phosphatase 94 U/L (38-126); Blood Urea Nitrogen 12 mg/dl (7-17); Calcium 10.3 mg/dl (8.4-10.2); Carbon Dioxide 27 mmol/L (22-30); Chloride 105 mmol/L (98-107); Glucose 112 mg/dl (70-99); Sodium 143 mmol/L (135-145); Total Bilirubin 0.8 mg/dl (0.2-1.3); Total Protein 7.4 g/dl (6.3-8.2); eGFR > 60.00
== END ==
LOC: REG 07:34
PROVIDERS: ATTENDING PHYSICIAN Nurse Practitioner Family
DX: Z76.89 Persons encountering health services in other specified circumstances (principal); Z71.89 Other specified counseling; Z68.28 Body mass index [BMI] 28.0-28.9, adult; E66.3 Overweight
CPT/HCPCS: 36415; 80053; 85025

== ENCOUNTER → 2024-11-02 08:33 | Outpatient (REF) | payer MEDICARE, BC, SELFPAY | LOC: WOUND 08:33 | PROVIDERS: ATTENDING PHYSICIAN Surgery; FAMILY PHYSICIAN Nurse Practitioner Family | DX: L97.229 Non-pressure chronic ulcer of left calf with unspecified severity (principal); S80.12XA Contusion of left lower leg, initial encounter; Z96.651 Presence of right artificial knee joint; Z91.81 History of falling; Z96.652 Presence of left artificial knee joint; Z86.718 Personal history of other venous thrombosis and embolism; X58.XXXA Exposure to other specified factors, initial encounter | CPT/HCPCS: 99213 ==

== ENCOUNTER → 2024-11-09 09:09 | Outpatient (REF) | payer MEDICARE, BC, SELFPAY | LOC: WOUND 09:09 | PROVIDERS: ATTENDING PHYSICIAN Surgery; FAMILY PHYSICIAN Nurse Practitioner Family | DX: L97.229 Non-pressure chronic ulcer of left calf with unspecified severity (principal); S80.12XA Contusion of left lower leg, initial encounter; Z96.651 Presence of right artificial knee joint; Z91.81 History of falling; Z96.652 Presence of left artificial knee joint; Z86.718 Personal history of other venous thrombosis and embolism; X58.XXXA Exposure to other specified factors, initial encounter | CPT/HCPCS: 99213 ==

== ENCOUNTER 2024-11-15 06:31 | Day surgery (SDC) | payer MEDICARE, BC, SELFPAY ==
[2024-11-15] VITALS (10 sets, daily range): BP systolic 107–127; BP diastolic 68–84; BMI 28.3
[2024-11-15] MEDS: NORMOSOL-R/PLASMALYTE-A 1000 IV (13:15)
--- NOTE | 2024-11-15 16:21 | W.IMMPOSTOP ---
Surgical Immed Post Op Note
-
Primary Surgeon: MICHELLE Hernandez MD
Assisting Surgeon:
Pre-op Diagnosis: Left lower extremity wound
Post-op Diagnosis: Same
Procedure Performed: Split-thickness skin graft to left lower extremity, donor site left thigh
Anesthesia Type: General
Specimen / Cultures: None
Estimated Blood Loss: 5 cc
Complications: None
Operative Findings: As expected
--- NOTE | 2024-11-15 16:22 | OR.RPT ---
Operative Report
Operative Report
Date of surgery: 11/15/2024
Surgeon: MICHELLE Hernandez MD
Preoperative diagnosis: Nonpressure ulcer of the left lower extremity
Postoperative diagnosis: Same
Procedure:
1. Wound bed prep left lower extremity, 22 x 15 cm
2. Split-thickness skin graft left lower extremity, 22 x 15 cm
3. Negative pressure wound VAC application, 22 x 15 cm
Anesthesia: General
Complications: None
EBL: 5 cc
Indications for procedure: Patient is a 69-year-old female with a history of trauma to the left lower extremity. This occurred many months ago and she was left with a granulating wound and full-thickness skin loss. Given the size of the wound, she
was referred to me for consideration of skin graft to abbreviate the wound healing process. Risk of this procedure reviewed at length including graft failure. Alternatives include continued wound care. Discussed the donor site scar on the thigh
and the use of a VAC dressing postoperatively. She had already used a VAC previously and this was amenable. She consented accordingly.
Procedure in detail: Patient was identified preoperatively and the surgical site was confirmed to be the left lower extremity. All questions were answered and consents were confirmed. Patient was taken back the operating placed supine on the
table. Anesthesia was induced and the patient was prepped and draped in the usual sterile fashion using ChloraPrep and Betadine solutions. Timeout for patient safety was performed was confirmed that preoperative antibiotics had been administered
and SCD was present the right lower extremity. Procedure began with the injection of the 50-50 mixture 1% lidocaine with epinephrine and dilute Marcaine. This was placed in the left thigh donor site as well as in the perimeter of the wound. Wound
bed prep was then performed with a 10 blade tangentially excising the fibrinous tissue to healthy punctate bleeding granulation tissue. All necrotic debris was removed. 3 L normal saline was then used to irrigate the wound and reduce bioburden.
The wound was then measured to be 22 x 15 cm. As such 4 cm guard was selected and the plan was made to mesh the skin graft 1-1.5. A dermatome was used to harvest the skin graft from the left thigh in the usual fashion. The skin graft was placed
through the mesher and then fixated to the wound. A 4-0 chromic was run on the perimeter as well as a few insetting sutures. Following this Adaptic was placed over the skin graft as well as bacitracin and a wound VAC was applied over the area, 22
x 15 cm. The left thigh donor site was hemostatic and a Tegaderm was placed. Patient tolerated the procedure well, was performed out complication, all counts were correct at the end the case.
== END 2024-11-15 17:45 | disposition home or self-care (01) ==
LOC: SDS 06:31
PROVIDERS: ATTENDING PHYSICIAN Surgery Plastic and Reconstructive Surgery
DX: L97.229 Non-pressure chronic ulcer of left calf with unspecified severity (principal)
CPT/HCPCS: 15100; 15101 ×2; 15002; 15003 ×2; 97607

== ENCOUNTER 2025-02-28 06:06 | Day surgery (SDC) | payer MEDICARE, BC, SELFPAY ==
[2025-02-28 08:31] VITALS: BMI 28.3
[2025-02-28 08:32] VITALS: BP 129/75; BMI 28.3
[2025-02-28 11:07] VITALS: BP 103/75
[2025-02-28 11:26] VITALS: BP 124/77
[2025-02-28 11:40] VITALS: BP 132/81
== END 2025-02-28 12:05 | disposition home or self-care (01) ==
LOC: GI 06:06
PROVIDERS: ATTENDING PHYSICIAN Internal Medicine Gastroenterology
DX: K57.30 Diverticulosis of large intestine without perforation or abscess without bleeding (principal); K64.0 First degree hemorrhoids; K63.89 Other specified diseases of intestine; D12.5 Benign neoplasm of sigmoid colon; K63.5 Polyp of colon
CPT/HCPCS: 45390; 45385; 45380; 88305

== ENCOUNTER 2025-03-21 07:15 | Emergency (ER) | payer MEDICARE, BC, SELFPAY ==
[2025-03-21 07:20] VITALS: BP 156/91
[2025-03-21 07:41] VITALS: BMI 28.3
[2025-03-21] MEDS: MOTRIN 600 MG PO (08:07)
[2025-03-21] MEDS: ROXICODONE 5 MG PO (08:07)
--- NOTE | 2025-03-21 08:46 | ED.GENMED ---
History of Present Illness
General
Chief Complaint: Fall
Source: patient
Exam Limitations: none
Time Seen by Provider: 03/21/25 07:28
Nursing documentation reviewed up to this point in time: agreed with
History of Present Illness
History of Present Illness:
Patient is a 69-year-old female who presents with left wrist injury. Patient describes mechanical fall while outside yesterday landing on her left wrist. She is right-hand dominant. She denies hitting her head she is not on blood thinners. She
complains of pain to the left wrist only. She has not taken anything for pain today. She did take Tylenol yesterday.
Past History
Past History
ED Past Medical History: Hypothyroidism and Psychiatric (Anxiety, depression)
ED Past Surgical History: Orthopedic
Social History
Tobacco: Non-smoker
Alcohol: Daily
Drug: None
Personal:
Living: with family
Employment: Not employed
Phy Exam
General Physical Exam
General Presentation: no apparent distress
General age: appears stated age
General Skin: warm and dry
General Habitus: normal
General Mental: alert
General Hydration: appears well hydrated
Neurological Exam
Neurological Exam: alert and oriented x3
Musculoskeletal Exam
Musculoskeletal Exam: other (Left upper extremity strong pulses patient with obvious bruising and swelling to the wrist and hand no bony tenderness to hand tender throughout the distal radius. No abrasions or lacerations normal cap refill and
normal distal sensation)
Skin Exam
Skin Exam: normal color and warm/dry
Psychiatric Exam
Psychiatric Exam: normal mood/affect
Course
Orders/Labs/Results
Orders:
Orders
03/21/25 07:23
Wrist, Left 3 Views CR [CR Wrist - Left Min 3 Views] Urgent
Comment:
Reason For Exam: tripped and fell yesterday landed on left wrist
03/21/25 08:00
Ibuprofen [Motrin] 600 mg PO NOW STA
Oxycodone [Roxicodone] 5 mg PO NOW STA
03/21/25 08:43
Splints/Slings/Crut- Treatment ONCE
Location: Left
Type of Splint: Volar
Vital Signs
Initial and Last Documented VS:
Initial Vital Signs
Temp Pulse Resp BP Pulse Ox
98.3 F 79 16 156/91 98
03/21/25 07:20 03/21/25 07:20 03/21/25 07:20 03/21/25 07:20 03/21/25 07:20
Last Documented Vital Signs
Temp Pulse Resp BP Pulse Ox
98.3 F 79 16 156/91 98
03/21/25 07:20 03/21/25 07:20 03/21/25 07:20 03/21/25 07:20 03/21/25 07:20
MDM/Problems Addressed
Differential Diagnosis Includes:
Not limited to fracture dislocation sprain strain
MDM/Problems Addressed:
X-ray shows comminuted impacted fracture of the distal radius and nondisplaced fracture of the ulnar styloid. Patient with normal neurovascular exam. Patient was medicated for pain will DC with splint and outpatient Ortho follow-up.
*Radiology
Radiology exam reviewed: radiology read reviewed
*Pulse Oximetry
SaO2: 98
Oxygen Mode of Delivery: Room air
Patient hypoxic: no
*Critical Care Note
Total Time (30-74mins, 75-104mins- exclusive of procedures): Not Applicable
ED Attending Note
-
Portions of this chart may have been created with voice recognition software.� Occasional wrong word or��sound alike� substitutions may have occurred due to the inherent limitations of voice recognition software.
Discharge Plan
Departure
Patient Disposition: Home (Routine Discharge)
Date of Disposition: 03/21/25
Time of Disposition: 08:48
Patient with high blood pressure during this ER visit?: Yes
Condition: Fair
Covid-19: Not Applicable
Discharge Problem:
Fracture of wrist
Instructions: BLOOD PRESSURE, Wrist Fracture
Prescriptions:
New
oxycodone 5 mg tablet
5 mg PO Q6H PRN (Reason: Pain) Qty: 10 0RF
No Action
levothyroxine 50 MCG tablet
50 mcg PO DAILY@0700 Qty: 0 0RF
acetaminophen [Acetaminophen Extra Strength] 500 mg tablet
1,000 mg PO Q6H PRN (Reason: PAIN)
Rx Instructions:
DO NOT exceed >4000 mg daily.
docusate sodium 100 mg capsule
200 mg PO PRN PRN (Reason: Constipation)
aspirin 81 mg Tablet,Chewable
324 mg PO DAILY
sertraline 50 mg tablet
50 mg PO DAILY
ascorbic acid (vitamin C) [Vitamin C] 500 mg Tablet Extended Release
500 mg PO DAILY
One-A-Day Womens Formula 18 mg iron-400 mcg-500 mg Tablet
1 tab PO DAILY
turmeric
1 cap PO DAILY
Saccharomyces boulardii 250 mg capsule
250 mg PO DAILY
Referrals:
Jean Faria MD [Family Provider, Family Practice]
Rigoberto Baez MD [Active, Orthopedics]
Activity Restrictions/Additional Instructions:
As discussed wear splint for support until seen and eval by Ortho. Do not wet splint. Keep elevated as much as possible. You may continue to ice over the affected area for the next 24 to 48 hours 20 minutes at a time several times a day. You may
alternate between ibuprofen and Tylenol and if needed a prescription for oxycodone sent to see. Take as directed. This is a narcotic and will cause drowsiness. No driving or drinking alcohol and taking medication. In addition this may cause
constipation be sure to take [id number] laxative while taking this medication.
Interventions
Interventions:
*Risk Screen - Suicide Last Done: 03/21/25 07:20
*General Assessment Last Done: 03/21/25 07:36
*Neglect/Abuse Screening Last Done: 03/21/25 07:20
*ED- Fall Risk Assessment Last Done: 03/21/25 07:36
*ED COVID-19 Vaccine History Last Done: 03/21/25 07:36
ED-Musculoskeletal Assessment Last Done: 03/21/25 07:36
ED- Neurological Assessment Last Done: 03/21/25 07:36
ED-Skin Assessment Last Done: 03/21/25 07:36
Discharge Date and Time
Print Language: VIETNAMESE
== END 2025-03-21 09:40 | disposition home or self-care (01) ==
LOC: EMR 07:15
PROVIDERS: EMERGENCY PHYSICIAN Student in an Organized Health Care Education/Training Program; FAMILY PHYSICIAN Family Medicine
DX: S52.502A Unspecified fracture of the lower end of left radius, initial encounter for closed fracture (principal); S52.615A Nondisplaced fracture of left ulna styloid process, initial encounter for closed fracture; W01.0XXA Fall on same level from slipping, tripping and stumbling without subsequent striking against object, initial encounter; E03.9 Hypothyroidism, unspecified
CPT/HCPCS: 29125; 99283; 73110

== ENCOUNTER → 2025-03-26 07:57 | Outpatient (REF) | payer MEDICARE, BC, SELFPAY ==
[2025-03-26 09:05] LABS: Hematocrit 39.2 % (37.0-47.0); Hemoglobin 13.3 g/dL (12.0-16.0); Mean Corp Hgb Conc. 33.9 g/dL (33.0-37.0); Mean Corpuscular Volume 102.6 fL (81.0-99.0); Nucleated Red Blood Cells % 0 %; Platelet Count 200 10^3/uL (130-400); Red Cell Dist. Width 12.9 % (11.5-14.5)
[2025-03-26 09:35] LABS: Blood Urea Nitrogen 19 mg/dl (7-17); Calcium 9.4 mg/dl (8.4-10.2); Carbon Dioxide 25 mmol/L (22-30); Chloride 105 mmol/L (98-107); Glucose 114 mg/dl (70-99); Potassium 4.2 mmol/L (3.5-5.1); Sodium 139 mmol/L (135-145); eGFR > 60.00
== END ==
LOC: SDSPAT 07:57
PROVIDERS: ATTENDING PHYSICIAN Orthopaedic Surgery; FAMILY PHYSICIAN Family Medicine
DX: Z01.818 Encounter for other preprocedural examination (principal)
CPT/HCPCS: 36415; 80048; 85025; 93005

== ENCOUNTER 2025-03-27 05:55 | Day surgery (SDC) | payer MEDICARE, BC, SELFPAY ==
[2025-03-26 14:08] VITALS: BMI 29.6
[2025-03-27] VITALS (7 sets, daily range): BP systolic 101–135; BP diastolic 69–98; BMI 29.6
[2025-03-27] MEDS: CELEBREX 200 MG PO (06:21)
[2025-03-27] MEDS: NORMOSOL-R/PLASMALYTE-A 1000 IV (06:28)
== END 2025-03-27 11:46 | disposition home or self-care (01) ==
LOC: SDS 05:55
PROVIDERS: ATTENDING PHYSICIAN Orthopaedic Surgery
DX: S52.572A Other intraarticular fracture of lower end of left radius, initial encounter for closed fracture (principal); W19.XXXA Unspecified fall, initial encounter
CPT/HCPCS: 25609; C1713

== ENCOUNTER → 2025-07-04 08:14 | Outpatient (REF) | payer MEDICARE, BC, SELFPAY ==
[2025-07-04 09:03] LABS: Hematocrit 47.9 % (37.0-47.0); Hemoglobin 15.2 g/dL (12.0-16.0); Mean Corp Hgb Conc. 31.7 g/dL (33.0-37.0); Mean Corpuscular Volume 105.3 fL (81.0-99.0); Nucleated Red Blood Cells % 0 %; Platelet Count 298 10^3/uL (130-400); Red Cell Dist. Width 12.5 % (11.5-14.5)
[2025-07-04 09:28] LABS: Blood Urea Nitrogen 11 mg/dl (7-17); Calcium 9.5 mg/dl (8.4-10.2); Carbon Dioxide 29 mmol/L (22-30); Chloride 105 mmol/L (98-107); Glucose 102 mg/dl (70-99); Potassium 4.6 mmol/L (3.5-5.1); Sodium 139 mmol/L (135-145); eGFR > 60.00
== END ==
LOC: REG 08:14
PROVIDERS: ATTENDING PHYSICIAN Orthopaedic Surgery
DX: Z01.818 Encounter for other preprocedural examination (principal)
CPT/HCPCS: 36415; 80048; 85025; 93005